=== PATIENT | female | born 1955 | race Caucasian/White ===

== ENCOUNTER 2019-07-25 08:06 | Outpatient (RCR) | payer OTHER, SELFPAY ==
[2019-07-25] VITALS (8 sets, daily range): BP systolic 98–130; BP diastolic 65–78; PULSE 70–100; RESP 16–18; TEMP 36.1–37.1; O2SAT 98–100
[2019-07-25 09:10] LABS: Hematocrit 29.4 % (37.0-47.0); Hemoglobin 9.5 g/dL (12.0-15.0)
[2019-07-25] MEDS: ACETAMINOPHEN 325 MG TABLET 650 MG PO (09:59)
[2019-07-25] MEDS: FUROSEMIDE INJ 40 MG/4 ML VIAL 20 MG IV PUSH (14:32)
[2019-07-25] MEDS: HEPARIN SOD FLUSH 500 UNITS/5 ML SYRINGE (17:45)
== END 2019-10-23 23:59 | disposition home or self-care (01) ==
LOC: ANHCPCTRAN 08:06
PROVIDERS: PCP Family Medicine; Visit Provider Internal Medicine Hematology & Oncology
DX: C34.90 Malignant neoplasm of unspecified part of unspecified bronchus or lung (principal); D64.9 Anemia, unspecified
CPT/HCPCS: 36415; 36430; 85014; 85018; 86850; 86900; 86901; 86923; 96374; A9270; J1940; P9016

== ENCOUNTER 2019-08-01 11:08 | Inpatient (IN) | payer OTHER, SELFPAY ==
--- NOTE | ~2019-08-01 | CT_ITS ---
EXAMINATION: CT abdomen pelvis w con DATE: 08/01/2019 13:54 INDICATION: Low abdominal pain. TECHNIQUE: Computed tomography (CT) of the abdomen and pelvis was performed with 100 mL Omnipaque 350 intravenous contrast. Automated exposure control and iterative reconstruction technique were employe d. The dose-length product was 171.61 mGy-cm. COMPARISON: CT abdomen and pelvis 05/24/2019 FINDINGS: The visualized portions of the lung bases demonstrate emphysema. There is an 8 mm nodule in right lower lobe, decreased from 13 mm. No pleural effusion. The heart size is normal. No pericardia l effusion. There is a small sliding hiatal hernia. The liver, gallbladder, spleen, and pancreas are normal. There are necrotic masses in the adrenal glands measuring up to 2.7 cm on the right, stable f rom 05/24/2019. Right kidney is normal. There is a 10 mm cyst in left kidney. There are scattered dive rticula in the colon. Sigmoid colon is dilated to 5.3 cm and filled with stool. There is wall thicken ing of sigmoid colon. There is wall thickening of adjacent ileum. There is fat stranding in left lowe r quadrant. There is trace ascites in left paracolic gutter. The appendix is normal. There are small foci of free intraperitoneal gas in the left upper quadrant. There are no pathologically enlarged lym ph nodes. There is mild lumbar spondylosis. IMPRESSION: 1. Small foci of free intraperitoneal gas in the left upper quadrant, consistent with perforated visc us. I called this result to Dr. Askew on 08/01/19 at 14:06. 2. Wall thickening of sigmoid colon and adjacent ileum, consistent with inflammation. Sigmoid colon i s distended and stool-filled. 3. Improved lung nodule and stable adrenal masses, consistent with primary bronchogenic carcinoma and metastatic disease. Reviewed, dictated and finalized at location [facility] IMPRESSION: 1. Small foci of free intraperitoneal gas in the left upper quadrant, consisten t with perforated viscus. I called this result to Dr. Askew on 08/01/19 at 14:06. 2. Wall thickening of sigmoid colon and adjacent ileum, consistent with inflamm ation. Sigmoid colon is distended and stool-filled. 3. Improved lung nodule and stable adrenal masses, consistent with primary bron chogenic carcinoma and metastatic disease.
[2019-08-01 11:37] VITALS: BP 110/63; PULSE 80; RESP 17; TEMP 37.4; O2SAT 97
[2019-08-01 11:53] LABS: Basophils Percent Auto 0.5 % (0.2-1.2); Hematocrit 42.3 % (37.0-47.0); Hemoglobin 14.4 g/dL (12.0-15.0); Immature Granulocyte Absolute 0.08 K/mm3 (0.00-0.031); Immature Granulocyte Percent A 1.4 % (0-0.5); Lymphocytes Absolute Auto 0.63 K/mm3 (0.9-3.2); Mean Corpuscular Hemoglobin 33.6 pg (26-34); Mean Corpuscular Volume 98.6 fl (80-100); Mean Platelet Volume 10.3 fl (7.4-10.4); Monocytes Absolute Auto 0.2 K/mm3 (0.1-0.6); Monocytes Percent Auto 4.2 % (2.6-8.5); Neutrophils Absolute Auto 4.8 K/mm3 (1.3-6.7); Neutrophils Percent Auto 82.9 % (45.5-73.1); Platelet Count Result 208 k/mm3 (150-375); Red Blood Count 4.29 M/mm3 (4.2-5.4); Red Cell Distribution Width 18.2 % (11.5-14.5); White Blood Count 5.7 K/mm3 (4.5-10.0)
[2019-08-01 12:04] LABS: Alanine Aminotransferase 18 U/L (4-35); Albumin Level 4.4 g/dL (3.5-5.1); Alkaline Phosphatase 99 U/L (38-126); Aspartate Amino Transferase 17 U/L (14-36); Bilirubin,Total 0.6 mg/dL (0.2-1.3); Blood Urea Nitrogen 33 mg/dL (7-17); Calcium 9.7 mg/dL (8.4-10.2); Carbon Dioxide 27 mmol/L (22-30); Chloride 94 mmol/L (98-107); Estimated Glomerular Filt Rate > 60; Glucose 140 mg/dL (65-105); Potassium 3.8 mmol/L (3.4-5.0); Sodium 133 mmol/L (137-145)
[2019-08-01 12:06] LABS: Lipase < 10 U/L (23-300)
[2019-08-01 12:50] VITALS: BP 121/95; PULSE 81; RESP 18; TEMP 36.5; O2SAT 96
--- NOTE | 2019-08-01 13:02 | ED.ABDPAIN ---
HPI - Abdominal Pain General Chief Complaint: Abdominal Pain Stated Complaint: abd pain Time Seen by Provider: 08/01/19 13:01 Source: patient and RN notes reviewed Mode of arrival: ambulatory Limitations: no limitations History of Present Illness HPI narrative: A 64 y/o female presents to the ED with severe, constant, 10/10, lower ABD pain for the past 3 days. She states that her last BM was 5 days ago and that she has been having severe lower ABD pain for the past 3 days. She reports associated nausea. She notes that she contacted her Oncologist, Dr. Stoddard, who told her to come here to be evaluated. She denies anything alleviating her symptoms. She also denies any fevers, chills, CP, SOB, cough, vomiting, or diarrhea. MD elicited complaint: abdominal pain Pertinent past history: diverticulitis Onset (ago): day(s) (3) Pain Consistency: constant Location: other (lower) Severity: severe Pain scale (0-10): 10 Associated symptoms: nausea Related Data Home Medications Medication Instructions Recorded Confirmed albuterol sulfate [ProAir HFA] 1 - 2 inh INHALATION Q4H PRN 07/05/19 07/27/19 aspirin [Aspirin Childrens] 81 mg PO DAILY 07/05/19 07/27/19 atorvastatin 40 mg PO DAILY 07/05/19 07/27/19 guaifenesin 600 mg PO BID 07/05/19 07/27/19 polyethylene glycol 3350 17 g PO DAILY PRN 07/05/19 07/27/19 cyanocobalamin (vitamin B-12) 1,000 mcg PO DAILY 07/26/19 07/27/19 [Vitamin B-12] dexamethasone 4 mg PO TID 07/26/19 07/27/19 ferrous sulfate [iron] 325 mg PO BID 07/26/19 07/27/19 folic acid 1 mg PO DAILY 07/26/19 07/27/19 levetiracetam [Keppra] 500 mg PO BID 07/26/19 07/27/19 zolpidem 5 mg PO HS PRN 07/26/19 07/27/19 Allergies Allergy/AdvReac Type Severity Reaction Status Date / Time No Known Allergies Allergy Verified 06/27/19 14:26 Review of Systems Review of Systems: All systems reviewed & are unremarkable except as noted in HPI and below Constitutional: Constitutional: Denies chills and Denies fever(s) Cardiovascular: Cardiovascular: Denies chest pain Respiratory: Respiratory: Denies cough and Denies dyspnea Gastrointestinal: Gastrointestinal: Reports abdominal pain (lower), Denies diarrhea, Reports nausea and Denies vomiting PMF Past Medical History Medical History (Updated 08/01/19 @ 17:39 by Joss Askew MD) Anxiety (Acute) Arthritis (Acute) Bipolar 1 disorder, depressed (Acute) COPD (chronic obstructive pulmonary disease) (Acute) Depression (Acute) Diverticulitis (Acute) Non-small cell lung cancer (Chronic) Right orbit fracture (Acute) Right wrist fracture (Acute Unknown) TIA (transient ischemic attack) (Acute) UTI (urinary tract infection) (Acute Unknown) Vulvar cancer (Acute) Surgical History Surgical History H/O right wrist surgery (Acute) History of hysterectomy (Acute) Status post right foot surgery (Acute) Family History Family History Father Lung cancer Mother Leukemia Social History Social History Social History: The patient has smoked between 2-2.5 packs of cigarettes per day since she was 14 years old. She currently reports smoking about 13 cigarettes per day. She evidently lives with her son who is a heroin user. The patient smokes marijuana daily. Does not have a healthcare power of commercial attorney. She reportedly does not have anyone to delegate a decision maker, because she does not trust her son to make decisions due to his drug abuse and she has no other family to put in this position. She wishes to be a full code at this time and will discuss her wishes with her son. Smoking packs per day: 0.5 Smoking cigarettes per day: 10.0 Years smoked: 40 Smoking pack-years: 20.00 Smoking status: Current every day smoker Tobacco type: cigarettes Second hand tobacco smoke exposure: Yes Amandeep
--- NOTE | 2019-08-01 13:46 | PC.NURSE ---
Patient to CT at this time
[2019-08-01] MEDS: METOCLOPRAMIDE HCL INJ 10 MG/2 ML VIAL IV PUSH (14:38)
[2019-08-01] MEDS: SODIUM CHLORIDE 0.9% IV 1,000 ML 999 ML IV CONT (14:39)
[2019-08-01 14:40] LABS: Add Urine Microscopic? NO; Appearance Urine Clear (Clear); Bilirubin Urine Negative (Negative); Blood Urine Negative (Negative); Color Urine Yellow (Yellow); Glucose Urine UA Negative (Negative); Ketones Urine Negative (Negative); Leukocyte Esterase Ur Negative LEU/UL (Negative); Nitrate Urine Negative (Negative); Protein Urine Negative (Negative); Urobilinogen Urine Negative mg/dL (<2.0)
[2019-08-01 14:41] VITALS: BP 106/79; PULSE 84; RESP 19; O2SAT 94
--- NOTE | 2019-08-01 14:41 | PC.NURSE ---
This RN asked EDP about obtaining blood cultures prior to antibiotic administration, EDP states that there is no need for blood cultures. Primary RN notified.
[2019-08-01 14:43] LABS: Specific Grav Ur 1.058 (1.001-1.035)
[2019-08-01 15:32] VITALS: BP 120/63; PULSE 78; RESP 20; O2SAT 96
--- NOTE | 2019-08-01 16:06 | PM.IMHP ---
H&P: HPI History of Present Illness Chief complaint: abd pain Narrative: Serena Jacobs is a 64 year old female with known metastatic non-small cell lung cancer being treated with chemotherapy and a history of COPD and history of diverticulitis. The patient was at an initial radiation oncology visit today to be set up for brain radiation and apparently was having severe abdominal pain and complaining of constipation, therefore she was directed to the emergency department to be evaluated. The patient reports that her abdominal pain started last , 4 days ago. She reports it is lower abdominal pain and initially she felt it was due to constipation. The following day, on Thursday, she began taking MiraLax and Senokot. She also reportedly had given herself an enema, with a bowel movement following this. She states the abdominal pain became severe and was cramping in nature. She attributed it to the laxatives, and reportedly stop taking laxatives. She states her pain started to improve up until yesterday. She began to have the lower abdominal pain worsening again suddenly. She attempted another enema, but this time with no results. She then presented to her appointment today to discuss radiation for her brain mass, and was directed to the ED due to her severe abdominal pain. CT scan of abdomen pelvis showed small foci of free air in the left upper quadrant, wall thickening of the sigmoid colon and adjacent ileum with the sigmoid colon filled with stool and measuring up to 5.3 cm. Also noted is an improved lung nodule and stable adrenal masses, consistent with primary bronchogenic carcinoma and metastatic disease. initial labs reveal a white blood cell count of 5,700, hemoglobin 14, hematocrit 42, sodium 133, potassium 3.8, BUN 33, creatinine 0.6, and lactic acid 2.0. Our service was contacted for the concerning findings of free air in the abdomen that raises concern for perforated viscus. Dr. Pruitt and I then evaluated the patient in emergency department and she will be admitted to our service. We will be consulting the hospitalist for medical management while inpatient. The patient reports that even following pain medication administered in the ED, she reports her abdominal pain at an 8/10. She reports having nausea for the past 2-3 days but no vomiting. Her last bowel movement was with the enema 3 days ago. She reportedly has been undergoing chemotherapy for the metastatic lung cancer by Dr. Stoddard and has had 4 treatments, with the last being on last Thursday, 6 days ago. Has not had any radiation treatment at this time. No other complaints at this time. Review of Systems Review of Systems: All systems reviewed & are unremarkable except as noted in HPI and below Constitutional: Constitutional: Reports as per HPI, Denies chills, Denies excessive sweating, Denies fatigue, Denies fever(s), Denies headache(s) and Denies weakness Eyes: Eyes: Denies change in vision and Denies eye pain ENT: Denies dysphagia, Denies dizziness, Denies dry mouth, Denies headache(s), Denies hearing loss and Denies mouth pain Cardiovascular: Cardiovascular: Denies chest pain, Denies pedal edema, Denies radiating jaw, neck or arm pain, Denies dyspnea and Denies dyspnea on exertion Respiratory: Respiratory: Denies cough, Denies dyspnea and Denies wheezing Comments: known metastatic lung cancer, current daily smoker Gastrointestinal: Gastrointestinal: Reports as per HPI, Reports abdominal pain (lower), Reports constipation, Denies dysphagia, Reports nausea (2-3 days) and Denies vomiting Musculoskeletal: Musculoskeletal: Denies abnormal gait, Denies deformity, Denies joint swelling, Denies numbness and Denies tingling Integumentary/Breasts: Skin/Breast: Denies new lesions, Denies rash, Denies wounds and Denies jaundice Neurologic: Denies abnormal gait, Denies dizziness, Denies headache(s), Reports numbness ( Numbness around her mouth) and Denies tingling Comments: recent
--- NOTE | 2019-08-01 16:11 | PM.PNGS ---
Progress Note: A&P Assessment and Plan (1) Perforation of sigmoid colon: Code(s): K63.1 - Perforation of intestine (nontraumatic) Status: Acute Assessment and Plan: Most effective treatment for patient would be exploratory laparotomy with sigmoidectomy to include the fecal impaction. This would necessitate end descending colostomy. This would be the most effective source control and patient understands this. She is however receiving palliative treatment for metastatic lung cancer. She is not sure if she wants to continue any treatments but at this time does not feel that surgery is something she wants to undergo. She was considering hospice but we also discussed nonsurgical medical management to include gentle laxatives IV antibiotics analgesics and IV fluids. This, she felt, would be the best option. She is admitted now for the above treatment. Will consult hospitalist for medical management. Was last chemotherapy treatment just Thursday, nonsurgical options do not seem likely to be successful. (2) Fecal impaction of colon: Code(s): K56.41 - Fecal impaction Status: Acute Assessment and Plan: Clearly has fecal impaction. There is inflammation and evidence of perforation in the sigmoid colon which could be from diverticulitis but more likely is stercoral colitis with perforation. (3) Non-small cell lung cancer: Code(s): C34.90 - Malignant neoplasm of unspecified part of unspecified bronchus or lung Status: Chronic (4) Brain metastases: Code(s): C79.31 - Secondary malignant neoplasm of brain Status: Acute (5) COPD (chronic obstructive pulmonary disease): Code(s): J44.9 - Chronic obstructive pulmonary disease, unspecified Status: Acute Subjective Subjective Date/Time Seen: 08/01/19 16:11 Patient is a 64-year-old woman who has been treated with chemotherapy for right lower lobe bronchogenic lung cancer. She reports she has had 3 chemotherapy treatments the last of which was Thursday. Jazmine was to go to radiation therapy today for evaluation and initiation of radiation therapy. This was for brain metastases. She started having abdominal pain last , 4 days ago. She woke up at 3:00 a.m. this morning however, and the abdominal pain was extremely severe. She has had constipation and was told to take MiraLax for this. She has tried other laxatives as well but without resolution. She was evaluated in the ER and noted to be afebrile with a normal white blood cell count. However her abdomen is diffusely tender with guarding. On CT scan, she has sigmoid colon stercoral colitis with several punctate areas of free intra-abdominal air. One pocket is in the left upper quadrant but there are also some other small pockets around the sigmoid colon. There is some inflammatory changes of adjacent small bowel in the pelvis as well. There is no evidence of small-bowel obstruction. She does have extensive constipation throughout the colon but most particularly in the sigmoid colon with a large fecalith there. The rectum is collapsed with no stool there. After after discussing surgical treatment which would include sigmoidectomy and descending colostomy, the patient was unsure whether she wanted to stop all cancer treatments and go on hospice. She really has no support at home to take care of a colostomy. She tells me her son is a heroin addict. She lives with him. After discussion, she really does not feel surgery is an option for her but would be willing to come in for non surgical treatment hoping that that would suffice. If it does not, she will then re-entered discussion regarding surgery and colostomy versus comfort care or hospice. She is admitted now for gentle laxatives orally, IV antibiotics, and analgesics. Review of Systems Review of Systems: All systems reviewed & are unremarkable except as noted in HPI and below Constitutional: Constitutional: Denies headache(s) E
[2019-08-01 16:32] VITALS: BP 106/78; PULSE 89; RESP 18; TEMP 36.8; O2SAT 94
[2019-08-01] MEDS: ENOXAPARIN 40 MG/0.4 ML SYRINGE SUB-Q (18:05)
[2019-08-01] MEDS: IBUPROFEN IV 800 MG/200 ML 800 MG/200 ML BAG 400 MG IVPB (19:35)
[2019-08-01] MEDS: MINERAL OIL 30 ML UDC 15 ML PO (19:38)
--- NOTE | 2019-08-01 19:47 | ADMGEN ---
This patient, Serena Jacobs, was admitted to Medical Room 245-. Patient/family oriented to hospital policies and general routines including ID bracelet, bed and alarms, visiting hours, pain management, procedures, bathroom and other care routines, personal items, smoking policy, room service/diet, and visiting hours. Valuables list has been completed. Information on how to activate the Rapid Response Team has been discussed. Patient/Family are encouraged to report perceived risks to care and to ask questions if they do not understand what they are told or what they should do.
[2019-08-01 22:00] VITALS: BP 93/53; PULSE 93; RESP 16; TEMP 37.6; O2SAT 92
[2019-08-01 22:13] VITALS: BMI 17.5
[2019-08-01] MEDS: DEXAMETHASONE 4 MG TABLET PO (22:15)
[2019-08-01] MEDS: levETIRAcetam 500 MG TABLET PO (22:15)
[2019-08-01] MEDS: FAMOTIDINE 20 MG/2 ML VIAL IV PUSH (22:15)
[2019-08-01] MEDS: PSYLLIUM POWDER PACKET 1 PACKET PO (22:15)
[2019-08-02] VITALS (21 sets, daily range): BP systolic 90–139; BP diastolic 54–86; PULSE 16–100; RESP 14–95; TEMP 35.8–37; O2SAT 88–100; BMI 17.5
[2019-08-02] MEDS: IBUPROFEN IV 800 MG/200 ML 800 MG/200 ML BAG 400 MG IVPB ×3 (00:07→19:54)
[2019-08-02] MEDS: ALBUTEROL SULFATE NEB 2.5 MG/0.5 ML INH 5 MG INHALATION ×3 (02:28→20:49)
[2019-08-02] MEDS: IPRATROPIUM BR 0.02% INH SOLN 0.5 MG/2.5 ML VIAL INHALATION ×3 (02:29→20:49)
[2019-08-02 05:28] LABS: Basophils Absolute Auto 0.1 K/mm3 (0.0-0.1); Basophils Percent Auto 0.9 % (0.2-1.2); Hematocrit 35.3 % (37.0-47.0); Hemoglobin 12.1 g/dL (12.0-15.0); Immature Granulocyte Absolute 0.09 K/mm3 (0.00-0.031); Immature Granulocyte Percent A 1.3 % (0-0.5); Lymphocytes Absolute Auto 0.36 K/mm3 (0.9-3.2); Lymphocytes Percent Auto 5.3 % (18.3-44.2); Mean Corpuscular HGB Conc 34.3 g/dl (32-36); Mean Corpuscular Hemoglobin 33.6 pg (26-34); Mean Corpuscular Volume 98.1 fl (80-100); Mean Platelet Volume 10.5 fl (7.4-10.4); Monocytes Absolute Auto 0.3 K/mm3 (0.1-0.6); Neutrophils Percent Auto 88.5 % (45.5-73.1); Platelet Count Result 122 k/mm3 (150-375); Red Cell Distribution Width 18.5 % (11.5-14.5); White Blood Count 6.8 K/mm3 (4.5-10.0)
[2019-08-02 05:39] LABS: Blood Urea Nitrogen 31 mg/dL (7-17); Calcium 8.3 mg/dL (8.4-10.2); Carbon Dioxide 26 mmol/L (22-30); Chloride 96 mmol/L (98-107); Estimated CRCL calculation 34 ml/min; Estimated Glomerular Filt Rate 50; Glucose 123 mg/dL (65-105); Potassium 3.4 mmol/L (3.4-5.0); Sodium 132 mmol/L (137-145)
[2019-08-02 05:50] LABS: Macrocytosis 1+ (NORMAL); Platelet Estimate Decreased (Adequate)
--- NOTE | 2019-08-02 06:00 | PM.IMCN ---
Assessment and Plan Assessment and plan (1) Perforation of sigmoid colon: Code(s): K63.1 - Perforation of intestine (nontraumatic) Status: Acute Assessment and Plan: The patient reported that she was not sure if she wanted to have surgery when she talked to the surgeon yesterday. But she thinks that she would have the best quality of life if she would go through with surgery. The patient states that she is now ready to have surgery. (2) Fecal impaction of colon: Code(s): K56.41 - Fecal impaction Status: Acute Assessment and Plan: Resulting in perforated viscus as discussed above. (3) COPD (chronic obstructive pulmonary disease): Code(s): J44.9 - Chronic obstructive pulmonary disease, unspecified Status: Acute Assessment and Plan: Will place patient on scheduled nebulizer treatments and incentive spirometry. Will continue patient's home guaifenesin. Patient's lung exam seems to be at her baseline. She is not in any respiratory distress. (4) Non-small cell lung cancer: Qualifiers: Laterality: unspecified laterality Qualified Code(s): C34.90 - Malignant neoplasm of unspecified part of unspecified bronchus or lung Code(s): C34.90 - Malignant neoplasm of unspecified part of unspecified bronchus or lung Status: Chronic (5) Brain metastases: Code(s): C79.31 - Secondary malignant neoplasm of brain Status: Acute Assessment and Plan: Continue dexamethasone to reduce vasogenic edema. Patient is NPO this will need to be switched over to IV formulation (6) Partial seizure: Code(s): R56.9 - Unspecified convulsions Status: Acute Assessment and Plan: Will continue patient's home Keppra. If she has made NPO she will need equal dosing in IV formulation. HPI Data of Consult Consult date: 08/02/19 Requesting Physician: Thong Pruitt MD Primary Care Provider: Karla Tierney, Consult Narrative Narrative: Serena Jacobs is a 64 year old female well known to me from prior hospitalization with a past medical history of emphysema/COPD, non-small cell carcinoma with relatively new diagnosis of metastatic disease to brain 07/19/2019 who presented back to the ER with severe abdominal pain. The hospitalist service has been consulted for medical management. The patient had been at the radiation oncologist office to set up the schedule for her radiation therapy for her brain metastases and while at the office she complained of abdominal pain. The patient reported the pain was so bad she could not stand up straight. She also mentioned having constipation to the staff. They recommended that she go to the ER. The patient reported the abdominal pain started on the and she thought it was due to constipation. On the she began taking MiraLax in addition to Senokot. When she still do not have a bowel movement in her pain was worsening she gave herself an enema. She did have a bowel movement that consisted of a large ball of hard stool. However after she used the enema her abdominal pain became more severe and cramping in nature. She thought it was due to taking laxative so she stopped taking the laxatives. She noted that her pain improved until when she is having worsening abdominal pain again. She reported the pain was moderate to severe in intensity and cramping in nature. She attempted another enema but had no results. She had a CT in the ER which demonstrated foci free air in the left upper quadrant walk thickening of sigmoid colon adjacent to the ileum with the sigmoid colon filled with stool measuring up to 5.3 cm. The patient's pain was 10/10 in intensity. After she received pain medication in the ER her pain was 8/10 in intensity. The patient had been having nausea for the past 2-3 days but had not been having any vomiting. She reports that her chemotherapy frequently causes her constipation. Her last chemother
[2019-08-02] MEDS: MINERAL OIL 30 ML UDC 15 ML PO (09:15)
[2019-08-02] MEDS: FAMOTIDINE 20 MG/2 ML VIAL IV PUSH ×2 (09:16→22:48)
[2019-08-02] MEDS: DEXAMETHASONE 4 MG TABLET PO ×2 (09:17→12:55)
[2019-08-02] MEDS: levETIRAcetam 500 MG TABLET PO (09:17)
[2019-08-02] MEDS: ENOXAPARIN 40 MG/0.4 ML SYRINGE SUB-Q (09:18)
--- NOTE | 2019-08-02 10:03 | PM.PNGS ---
Progress Note: A&P Assessment and Plan (1) Fecal impaction of colon: Code(s): K56.41 - Fecal impaction Status: Acute Assessment and Plan: This area of sigmoid colon Bill be resected with the surgery. End descending colostomy will be created. I spoke to the enterostomal therapy nurses and they will marked the patient preoperatively for descending colostomy. (2) Perforation of sigmoid colon: Code(s): K63.1 - Perforation of intestine (nontraumatic) Status: Acute Assessment and Plan: Discussed again with the patient. Although she is symptomatic Lisa better this morning, her creatinine as almost doubled. With her history of finishing chemotherapy just 1 week ago, it is quite unlikely she would survive with nonsurgical treatment. She understands that she may not survive or may have complications with surgery but this is certainly her best chance to survive this perforated colon with likely some fecal peritonitis. I discussed the procedure with her. She will be marked preoperatively for a stoma site. The procedure the risks the benefits and the recovery were discussed. The fact that the colostomy may be permanent was discussed. All questions were answered. She agrees to go ahead. (3) Non-small cell lung cancer: Qualifiers: Laterality: unspecified laterality Qualified Code(s): C34.90 - Malignant neoplasm of unspecified part of unspecified bronchus or lung Code(s): C34.90 - Malignant neoplasm of unspecified part of unspecified bronchus or lung Status: Chronic Assessment and Plan: Increases risk of the surgical procedure. (4) Brain metastases: Code(s): C79.31 - Secondary malignant neoplasm of brain Status: Acute Assessment and Plan: Increases risk of the surgical procedure. (5) COPD (chronic obstructive pulmonary disease): Code(s): J44.9 - Chronic obstructive pulmonary disease, unspecified Status: Acute Assessment and Plan: Increases risk of the surgical procedure. Subjective Subjective Date/Time Seen: 08/02/19 10:03 Patient reports: feels better, still having pain, no flatus and no bowel movement Interval history: Patient much more comfortable than she was in the emergency room but still having quite a bit of abdominal pain. She has reconsidered surgery and now wishes to proceed. Review of Systems Review of Systems: All systems reviewed & are unremarkable except as noted in HPI and below Constitutional: Constitutional: Denies headache(s) ENT: Denies headache(s) Cardiovascular: Cardiovascular: Denies chest pain and Denies dyspnea Respiratory: Respiratory: Denies cough and Denies dyspnea Gastrointestinal: Gastrointestinal: Reports as per HPI Neurologic: Denies confusion and Denies headache(s) Psychiatric: Psychiatric: Denies confusion Exam Const: General: comfortable and no acute distress; No confused Orientation/consciousness: oriented x3 and No confused Resp: Effort & Inspection: normal respiratory effort Auscultation: clear to auscultation bilaterally Cardio: Rate: regular rate Rhythm: regular rhythm GI: Inspection: normal to inspection Palpation (GI): Yes firm, Yes tender, Yes guarding, No hepatomegaly, No splenomegaly, No hernia, No mass and Yes rebound tenderness Auscultation: absent bowel sounds Neuro: General: oriented x3, no focal motor deficits and No confused Extrem: General: no calf tenderness and no edema Psych: Affect: normal affect Insight: insight good Judgement: judgment good Objective Data Vital Signs Vital Signs: Vital Signs - 24 hr 08/01/19 11:37 08/01/19 12:50 08/01/19 14:41 Temperature 37.4 C 36.5 C Pulse Rate 80 81 84 Respiratory Rate 17 18 19 Blood Pressure 110/63 121/95 H 106/79 Pulse Oximetry 97 96 94 L 08/01/19 15:32 08/01/19 16:32 08/01/19 22:00 Temperature 36.8 C 37.6 C Pulse Rate 78 89 93 Respiratory Rate 20 18 16 Blood Pressure 120/63 106/78 93/53 L Pu
--- NOTE | 2019-08-02 12:14 | PCWOUND ---
WOCN NOTE received orders to rosa both left and right abdomen for suggested ostomy placement site. had pateint sit up and lay flat to determine best sites. placed black marker X on sites and covered with transparent dressing. did basic education of ostomy care.
--- NOTE | 2019-08-02 13:00 | PC.NURSE ---
Pt taken to OR per bed.
[2019-08-02] MEDS: LACTATED RINGERS 1,000 ML 30 ML IV CONT ×2 (13:05→17:00)
--- NOTE | 2019-08-02 13:15 | PM.IMCN ---
Assessment and Plan Assessment and plan (1) Perforation of sigmoid colon: Code(s): K63.1 - Perforation of intestine (nontraumatic) Status: Acute Assessment and Plan: Patient understands risks wants to go ahead with bowel resection with ostomy bag placement, discussing with surgery team (2) Fecal impaction of colon: Code(s): K56.41 - Fecal impaction Status: Acute Assessment and Plan: Resulting in perforated sigmoid colon (3) COPD (chronic obstructive pulmonary disease): Code(s): J44.9 - Chronic obstructive pulmonary disease, unspecified Status: Acute Assessment and Plan: Will place patient on scheduled nebulizer treatments and incentive spirometry. Pt lungs are clear (4) Non-small cell lung cancer: Qualifiers: Laterality: unspecified laterality Qualified Code(s): C34.90 - Malignant neoplasm of unspecified part of unspecified bronchus or lung Code(s): C34.90 - Malignant neoplasm of unspecified part of unspecified bronchus or lung Status: Chronic Assessment and Plan: Continue dexamethasone. Pt is high risk for surgery with lung cancer and brains mets (5) Brain metastases: Code(s): C79.31 - Secondary malignant neoplasm of brain Status: Acute Assessment and Plan: Continued dexamethasone. Pt is high risk for surgery with lung cancer and brains mets (6) Partial seizure: Code(s): R56.9 - Unspecified convulsions Status: Acute Assessment and Plan: Continuedpatient's home Keppra HPI Data of Consult Consult date: 08/02/19 Requesting Physician: Thong Pruitt MD Primary Care Provider: Karla Tierney, Consult Narrative Narrative: Mrs Jacobs is a 64 year old female - with a past medical history of emphysema/COPD, non-small cell carcinoma and new diagnosis of metastatic disease to brain 07/19/2019 who presented to ED this time with severe abdominal pain, Pt has been having problems with severe constipation for 6-7 days and fecel impaction resulting in a perforation of her sigmoid colon. Pt seen by surgery options discuused. Pt wants to proceed with surgery is aware she is high risk patient. Pt also sees DR Stoddard. Her last chemotherapy was 6 days ago.- Please note the patient had been admitted to the hospital on July 19 for new diagnosis of brain mets and had seizure activity at that time. The patient is continued her dexamethasone and keppra here and remains seizure free and her breathing is stable. Her main complaints are abdominal pains presently. Review of Systems Review of Systems: All systems reviewed & are unremarkable except as noted in HPI and below PMFSH Past Medical History Medical History (Updated 08/01/19 @ 17:39 by Joss Askew MD) Anxiety (Acute) Arthritis (Acute) Bipolar 1 disorder, depressed (Acute) COPD (chronic obstructive pulmonary disease) (Acute) Depression (Acute) Diverticulitis (Acute) Non-small cell lung cancer (Chronic) Right orbit fracture (Acute) Right wrist fracture (Acute Unknown) TIA (transient ischemic attack) (Acute) UTI (urinary tract infection) (Acute Unknown) Vulvar cancer (Acute) Surgical History Surgical History H/O right wrist surgery (Acute) History of hysterectomy (Acute) Status post right foot surgery (Acute) Family History Family History Father Lung cancer Mother Leukemia Social History Social History Social History: The patient has smoked between 2-2.5 packs of cigarettes per day since she was 14 years old. She currently reports smoking about 13 cigarettes per day. She evidently lives with her son who is a heroin user. The patient smokes marijuana daily. 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 She reportedly does not have an
--- NOTE | 2019-08-02 13:20 | WPDANESEPPF ---
Anes - Initial Pre Proc Eval Procedure: Operation Date: 08/02/19 14:00 Proposed Procedures p SIGMOID COLECTOMY WITH OSTOMY,SUAREZ PORECEDURE - Thong Pruitt MD Date/Time: 08/02/19 13:20 Surgeon: Thong Pruitt MD Pre Op Diagnosis: bowel perforation Patient Data Age: 64 Gender: F Height: 5 ft 4 in Weight: 46.3 kg Last Vital Signs Temp 35.8 C L 08/02/19 06:00 Pulse 97 08/02/19 08:00 Resp 16 08/02/19 08:00 BP 92/54 L 08/02/19 06:00 Pulse Ox 94 L 08/02/19 08:00 Allergies Allergy/AdvReac Type Severity Reaction Status Date / Time No Known Allergies Allergy Verified 08/02/19 11:14 Home Medications Medication Instructions Recorded Confirmed Type albuterol sulfate [ProAir HFA] 1 - 2 inh INHALATION Q4H PRN 07/05/19 08/02/19 History aspirin [Aspirin Childrens] 81 mg PO DAILY 07/05/19 08/02/19 History atorvastatin 40 mg PO DAILY 07/05/19 08/02/19 History guaifenesin 600 mg PO BID 07/05/19 08/02/19 History polyethylene glycol 3350 17 g PO DAILY PRN 07/05/19 08/02/19 History cyanocobalamin (vitamin B-12) 1,000 mcg PO DAILY 07/26/19 08/02/19 History [Vitamin B-12] dexamethasone 4 mg PO TID 07/26/19 08/02/19 History ferrous sulfate [iron] 325 mg PO BID 07/26/19 08/02/19 History folic acid 1 mg PO DAILY 07/26/19 08/02/19 History zolpidem 5 mg PO HS PRN 07/26/19 08/02/19 History levetiracetam [Keppra] 500 mg PO BID 08/01/19 08/02/19 History Laboratory Tests 08/01/19 08/01/19 08/02/19 14:16 15:21 05:07 WBC 6.8 K/mm3 K/mm3 (4.5-10.0) RBC 3.60 M/mm3 L M/mm3 (4.2-5.4) Hgb 12.1 g/dL g/dL (12.0-15.0) Hct 35.3 % L % (37.0-47.0) MCV 98.1 fl fl (80-100) MCH 33.6 pg pg (26-34) MCHC 34.3 g/dl g/dl (32-36) RDW 18.5 % H % (11.5-14.5) Plt Count 122 k/mm3 L k/mm3 (150-375) MPV 10.5 fl H fl (7.4-10.4) Immature Gran % (Auto) 1.3 % H % (0-0.5) Neut % (Auto) 88.5 % H % (45.5-73.1) Lymph % (Auto) 5.3 % L % (18.3-44.2) [place] % (Auto) 4.0 % % (2.6-8.5) Eos % (Auto) 0.0 % % (0-4.4) Baso % (Auto) 0.9 % % (0.2-1.2) Lymph # (Auto) 0.36 K/mm3 L K/mm3 (0.9-3.2) [place] # (Auto) 0.3 K/mm3 K/mm3 (0.1-0.6) Eos # (Auto) 0.0 K/mm3 K/mm3 (0-0.3) Baso # (Auto) 0.1 K/mm3 K/mm3 (0.0-0.1) Abs Immat Gran (auto) 0.09 K/mm3 H K/mm3 (0.00-0.031) Absolute Neuts (auto) 6.0 K/mm3 K/mm3 (1.3-6.7) Absolute Nucleated RBC 0.0 K/mm3 K/mm3 (0.0-0.012) Nucleated RBC % 0.0 % % (0.0-0.2) Platelet Estimate Decreased (Adequate) Macrocytosis 1+ (NORMAL) Sodium Potassium Chloride Carbon Dioxide BUN Creatinine Estim Creat Clear Calc Estimated GFR Glucose Lactic Acid 2.0 mmol/L mmol/L (0.7-2.1) Calcium Urine Color Yellow (Yellow) Urine Appearance Clear (Clear) Urine pH 6.0 (5.0-9.0) Ur Specific [place] 1.058 H (1.001-1.035) Urine Protein Negative mg/dL mg/dL (Negative) Urine Glucose (UA) Negative mg/dL mg/dL (Negative) Urine Ketones Negative mg/dL mg/dL (Negative) Ur Blood (Man) Negative (Negative) Urine Nitrate Negative (Negative) Urine Bilirubin Negative (Negative) Urine Urobilinogen Negative mg/dL mg/dL (<2.0) Leukocyte Esterase Rfl Negative FANNY/UL FANNY/UL (Negative) Blood Type Antibody Screen 08/02/19 08/02/19 05:07 11:10 WBC RBC Hgb Hct MCV MCH MCHC RDW Plt Count MPV Immature Gran % (Auto) Neut % (Auto) Lymph % (
[2019-08-02] MEDS: ALVIMOPAN 12 MG CAPSULE PO (13:30)
[2019-08-02] MEDS: HYDROMORPHONE HCL 1 MG/ML INJ 0.5 MG IV PUSH (13:30)
[2019-08-02] MEDS: metroNIDAZOLE 500 MG/ISO 100ML 500 MG/100 ML BAG 100 MG IVPB (14:08)
--- NOTE | 2019-08-02 15:54 | SUR.OPER ---
EBL:20CC
--- NOTE | 2019-08-02 16:19 | PC.NURSE ---
Pt remains in the OR.
--- NOTE | 2019-08-02 16:26 | PM.PROC ---
Date of procedure: 08/02/19 Pre-op diagnosis: Perforation sigmoid colon, fecal impaction Perforation sigmoid colon, fecal impaction Post-op diagnosis: same Procedure performed: Sigmoid colectomy with creation of end descending colostomy, Pancho procedure Description of procedure: The patient was taken to surgery and induced into general anesthesia. The abdomen was prepped and draped. A Morgan catheter had been placed. A nasogastric tube had been placed. The abdomen was opened in the midline. Dissection was carried down through the midline and the peritoneal cavity was entered. There was obviously some purulent ascites in the abdomen. There were also adhesions of omentum and some small bowel to the perforated fecal impaction in the sigmoid colon. The ascites was suctioned away. The adhesions were taken down. I eviscerated the transverse colon and all of the small intestine so that the area of the sigmoid perforation could be isolated. I then irrigated the pelvis and suctioned this irrigant out. I mobilized the sigmoid colon by dividing its lateral peritoneal attachments. I then isolated a bit of distal sigmoid colon using the cautery. I divided this distal sigmoid with the TLC 75 stapler. From there I isolated a bit of distal descending colon just proximal to the retained fecal impaction in the sigmoid. I divided this portion of the colon with a TLC 75 stapler as well. This dissection was done with the cautery which was used for hemostasis. I then divided the mesentery to the area of sigmoid that held the fecal impaction. This was also done with the cautery and cautery was used for hemostasis. This allowed me to remove the source of sepsis. This was passed off to pathology labeled perforated sigmoid colon with fecal impaction. At this point I copiously irrigated the entire abdomen with warm saline. Some peroxide mixed with warm saline was then used to irrigate the abdomen as well. I removed exudate and fibrinous debris from the serosal surface of the omentum and small intestine as much as I could. I then repeated the irrigation thoroughly. The NG tube was checked and was appropriately in the stomach. I evacuated much of the small bowel fluid back into the stomach and evacuated that through the NG tube. I checked the pelvis and other areas of dissection for hemostasis which was quite good. The patient had been marked preoperatively for a left-sided colostomy. I excised a [place] in the area that had been marked. This was a [place] of skin with the corresponding subcutaneous down to the anterior rectus fascia. I then made a cruciate incision in the fascia and pulled the rectus muscle fibers apart so that the posterior rectus fascia was exposed. This was also divided with a cruciate incision. I dilated the opening with 2 fingers. The end of the descending colon was pulled up through the aperture and left on the abdominal wall in this position. I made sure that it was oriented appropriately so it was not twisted. I should point out that the entire colon was packed with stool as well. This included the entire cecum, right colon, transverse colon, and descending colon. I then went back to the peritoneal cavity. I placed the abdominal contents back in their anatomic position. I placed a 19 Portuguese Ming drain in the pelvis and brought it out through the right lower quadrant. It was sutured to the skin with 2 0 silk. I then closed the midline fascia with bidirectional running #1 PDS suture. The subcu was closed with interrupted 3 0 Vicryl suture. The skin was loosely approximated with interrupted 4 0 Vicryl subcuticular suture. I quarantined the skin incision and the drain exit site. I then divided the staple line and some of the end descending colon in preparation to mature the colostomy. The bowel looked quite healthy. I matured the colostomy with interrupted 4 0 chromic suture. Four sutures were placed in each quadrant. Then 4 additional sutures we
--- NOTE | 2019-08-02 16:35 | SUR.OPER ---
ZOSYN 3.375MG GIVEN IN OR AT 1558 BY DELONTE LAL CRNA. IV BAG OBTAINED FROM SECOND FLOOR, IT WAS SCHEDULED DOSE
--- NOTE | 2019-08-02 17:36 | PCRCNOTE ---
PATIENT IN SURGERY TREATMENT NOT GIVEN
--- NOTE | 2019-08-02 17:38 | SUR.PHASEI ---
1608; PT ARRIVED IN TO PACU PER BED WITH MASK O2, NG PLACED TO LOW CONTINUOUS SUCTION PER DR HE ORDER. COLOSTOMY BAG EMPTY. RT TO RT ABDOMEN SM AMT SEROSANG DRAINAGE. MIDLINE DRESSING TO ABD D/I. RESP EVEN UNLABORED. P,W,D. 1630; PT RESTING QUIETLY. PT WILL MOAN SOFTLY IN INTERVALS AND C/O PAIN. FENTANYL GIVEN PRN. 1720; REPORT GIVEN TO FLOOR RN. PT AROUSES EASILY TO VERBAL STIMULI. RESTING QUIETLY. ASKING ABOUT NG. INFORMED OF TUBE. 1725; TRANSFERRED PER BED TO ROOM 251. PT STATES NO FAMILY WITH HER TODAY AT HOSPITAL. MEETS DISCHARGE CRITERIA
[2019-08-02] MEDS: DEXAMETHASONE SOD PHOS INJ 4 MG/ML VIAL IV PUSH (21:20)
[2019-08-02] MEDS: levETIRAcetam 500MG/NACL 100ML 500 MG/100 ML BAG 400 MG IVPB (21:20)
[2019-08-02] MEDS: HEPARIN SOD FLUSH 500 UNITS/5 ML SYRINGE IV PUSH (21:20)
[2019-08-02] MEDS: LACTATED RINGERS 1,000 ML 125 ML IV CONT (21:21)
[2019-08-03] VITALS (12 sets, daily range): BP systolic 103–116; BP diastolic 52–71; PULSE 78–100; RESP 16–22; TEMP 36.1–36.7; O2SAT 95–97
[2019-08-03] MEDS: IBUPROFEN IV 800 MG/200 ML 800 MG/200 ML BAG 400 MG IVPB ×4 (00:22→17:59)
[2019-08-03] MEDS: IPRATROPIUM BR 0.02% INH SOLN 0.5 MG/2.5 ML VIAL INHALATION ×4 (02:53→20:36)
[2019-08-03] MEDS: ALBUTEROL SULFATE NEB 2.5 MG/0.5 ML INH 5 MG INHALATION ×4 (02:53→20:36)
[2019-08-03 06:24] LABS: Basophils Absolute Auto 0.1 K/mm3 (0.0-0.1); Basophils Percent Auto 0.9 % (0.2-1.2); Hematocrit 28.3 % (37.0-47.0); Hemoglobin 9.8 g/dL (12.0-15.0); Immature Granulocyte Percent A 1.6 % (0-0.5); Lymphocytes Absolute Auto 0.17 K/mm3 (0.9-3.2); Lymphocytes Percent Auto 2.7 % (18.3-44.2); Mean Corpuscular HGB Conc 34.6 g/dl (32-36); Mean Corpuscular Hemoglobin 33.9 pg (26-34); Mean Corpuscular Volume 97.9 fl (80-100); Mean Platelet Volume 11.6 fl (7.4-10.4); Monocytes Absolute Auto 0.3 K/mm3 (0.1-0.6); Monocytes Percent Auto 4.4 % (2.6-8.5); Neutrophils Absolute Auto 5.7 K/mm3 (1.3-6.7); Neutrophils Percent Auto 90.4 % (45.5-73.1); Platelet Count Result 89 k/mm3 (150-375); Red Blood Count 2.89 M/mm3 (4.2-5.4); Red Cell Distribution Width 18.3 % (11.5-14.5); White Blood Count 6.3 K/mm3 (4.5-10.0)
[2019-08-03 06:49] LABS: Blood Urea Nitrogen 25 mg/dL (7-17); Calcium 7.7 mg/dL (8.4-10.2); Carbon Dioxide 23 mmol/L (22-30); Chloride 101 mmol/L (98-107); Estimated CRCL calculation 46 ml/min; Estimated Glomerular Filt Rate > 60; Glucose 134 mg/dL (65-105); Potassium 2.8 mmol/L (3.4-5.0); Sodium 133 mmol/L (137-145)
[2019-08-03] MEDS: levETIRAcetam 500MG/NACL 100ML 500 MG/100 ML BAG 400 MG IVPB ×2 (07:36→21:05)
[2019-08-03] MEDS: DEXAMETHASONE SOD PHOS INJ 4 MG/ML VIAL IV PUSH ×3 (07:41→21:05)
[2019-08-03] MEDS: ENOXAPARIN 40 MG/0.4 ML SYRINGE SUB-Q (07:42)
[2019-08-03] MEDS: FAMOTIDINE 20 MG/2 ML VIAL IV PUSH ×2 (07:42→21:05)
[2019-08-03] MEDS: KCL 40 MEQ/D5/0.9% SOD CHL 1,000 ML 125 ML IV CONT ×2 (08:01→18:01)
[2019-08-03] MEDS: POTASSIUM CHLORIDE 20 MEQ TABLET.ER 40 MEQ PO ×2 (08:01→17:58)
[2019-08-03] MEDS: MORPHINE SULFATE 4 MG/ML INJ IV PUSH (08:07)
--- NOTE | 2019-08-03 11:38 | PM.PNGS ---
Progress Note: A&P Assessment and Plan (1) Perforation of sigmoid colon: Code(s): K63.1 - Perforation of intestine (nontraumatic) Status: Acute Assessment and Plan: Post op day 1 and doing well. Pain is well-controlled. Continue IV antibiotics. Continue NG tube decompression and bowel rest. Continue IV fluids and analgesics. Dr. Pruitt will likely change the initial post-op dressing to evaluate the surgical incision and ostomy in the next 1-2 days. Encouraged the patient to get up to chair today. Will repeat labs again tomorrow. (2) Fecal impaction of colon: Code(s): K56.41 - Fecal impaction Status: Resolved Assessment and Plan: Sigmoid colon impaction removed with the bowel resection during surgery (3) Non-small cell lung cancer: Qualifiers: Laterality: unspecified laterality Qualified Code(s): C34.90 - Malignant neoplasm of unspecified part of unspecified bronchus or lung Code(s): C34.90 - Malignant neoplasm of unspecified part of unspecified bronchus or lung Status: Chronic (4) Brain metastases: Code(s): C79.31 - Secondary malignant neoplasm of brain Status: Acute Assessment and Plan: On IV Keppra while NPO. Appreciate hospitalist help. (5) COPD (chronic obstructive pulmonary disease): Code(s): J44.9 - Chronic obstructive pulmonary disease, unspecified Status: Acute Assessment and Plan: Increases risk of surgery and complications. Currently on breathing treatments and doing well so far. Encouraged IS use. (6) Hypokalemia: Code(s): E87.6 - Hypokalemia Status: Acute Assessment and Plan: Replaced with both oral and IV potassium today. Will repeat labs in the am. Subjective Subjective Date/Time Seen: 08/03/19 11:38 Post Op day: 1 Patient reports: no flatus and no bowel movement Interval history: Patient seen and examined. Reports some abdominal pain but improved with P.r.n. pain medication. Primary complaint is discomfort of the NG tube. No flatus or BM yet. No ostomy output. Patient denies any nausea or significant bloating today. WBC normal today, VS stable. NG output minimal overnight. No acute events overnight. Review of Systems Review of Systems: All systems reviewed & are unremarkable except as noted in HPI and below Exam Const: General: comfortable, no acute distress, alert and awake Orientation/consciousness: oriented x3 Resp: Effort & Inspection: normal respiratory effort and able to speak in complete sentences Auscultation: clear to auscultation bilaterally Cardio: Rate: regular rate Rhythm: regular rhythm Heart sounds: S1 normal and S2 normal GI: Inspection: non-distended and incision ( Dressing is clean, dry, and intact) Palpation (GI): Yes soft and Yes tender other (incisional) Auscultation: absent bowel sounds Other: WES drain to right side of abdomen with serosanguineous drainage. Left-sided colostomy with a smear of stool at the opening of the stoma but no output in the bag, stoma appears pink and moist. Neuro: General: oriented x3 and moves all extremities Cranial nerves: Yes CN's II-XII intact bilaterally Speech: normal speech Extrem: General: no calf tenderness and no edema Psych: Mental Status: mental status grossly normal Attitude: cooperative Thought process: normal thought process Thought content: Yes normal Objective Data Vital Signs Vital Signs: Vital Signs - 24 hr 08/02/19 13:36 08/02/19 16:08 08/02/19 16:20 Temperature 37.0 C 36.9 C Pulse Rate 76 77 72 Respiratory Rate 18 20 16 Blood Pressure 126/77 139/73 131/74 Pulse Oximetry 98 100 100 08/02/19 16:35 08/02/19 16:50 08/02/19 17:05 Temperature Pulse Rate 73 78 80 Respiratory Rate 17 18 20 Blood Pressure 137/85 138/75 132/77 Pulse Oximetry 100 100 96 08/02/19 17:25 08/02/19 17:35 08/02/19 17:50 Temperature 36.4 C 36.6 C Pulse Rate 80 83 83 Respiratory Rate 18 14 14 Blood Press
--- NOTE | 2019-08-03 13:18 | WPDANESPN ---
Anes - Prog Note Post-Op Date/Time: 08/03/19 13:18 Cardiovascular status: normal Respiratory status: normal Airway patency: baseline Mental status: baseline Post-Op hydration status: normal Vital Signs: Last Vital Signs Temp 98.0 F 08/03/19 05:50 Pulse 90 08/03/19 08:47 Resp 18 08/03/19 08:47 BP 107/64 08/03/19 05:50 Pulse Ox 95 08/03/19 08:00 Pain Score (VAS): 10/24 I/O: Intake & Output 08/02/19 08/03/19 08/03/19 23:59 07:59 15:59 Intake Total 650 700 50 Output Total 705 500 Balance -55 200 50 Laboratory Tests 08/03/19 05:42 08/03/19 05:42 08/03/19 08/03/19 05:42 05:42 WBC 6.3 RBC 2.89 L Hgb 9.8 L Hct 28.3 L MCV 97.9 MCH 33.9 MCHC 34.6 RDW 18.3 H Plt Count 89 L MPV 11.6 H Immature Gran % (Auto) 1.6 H Neut % (Auto) 90.4 H Lymph % (Auto) 2.7 L [place] % (Auto) 4.4 Eos % (Auto) 0.0 Baso % (Auto) 0.9 Lymph # (Auto) 0.17 L [place] # (Auto) 0.3 Eos # (Auto) 0.0 Baso # (Auto) 0.1 Abs Immat Gran (auto) 0.10 H Absolute Neuts (auto) 5.7 Absolute Nucleated RBC 0.0 Nucleated RBC % 0.0 Sodium 133 L Potassium 2.8 L* Chloride 101 Carbon Dioxide 23 BUN 25 H Creatinine 0.80 Estim Creat Clear Calc 46 Estimated GFR > 60 Glucose 134 H Calcium 7.7 L Microbiology 08/01/19 20:39 Blood Blood Culture - Preliminary 08/01/19 20:39 Blood Blood Culture - Preliminary Post-procedural complaints: none Patient Feedback: Patient satisfied with anesthetic care.
--- NOTE | 2019-08-03 13:42 | PM.IMCN ---
Assessment and Plan Assessment and plan (1) Perforation of sigmoid colon: Code(s): K63.1 - Perforation of intestine (nontraumatic) Status: Acute Assessment and Plan: Patient POD day 1 bowel resection with ostomy bag placement, surgery team is rounding. Pt has Ng tube in situ (2) Fecal impaction of colon: Code(s): K56.41 - Fecal impaction Status: Resolved Assessment and Plan: Resulting in perforated sigmoid colon pt sp bowel resection (3) COPD (chronic obstructive pulmonary disease): Code(s): J44.9 - Chronic obstructive pulmonary disease, unspecified Status: Acute Assessment and Plan: Continue scheduled nebulizer treatments and incentive spirometry. Pt lungs are clear (4) Non-small cell lung cancer: Qualifiers: Laterality: unspecified laterality Qualified Code(s): C34.90 - Malignant neoplasm of unspecified part of unspecified bronchus or lung Code(s): C34.90 - Malignant neoplasm of unspecified part of unspecified bronchus or lung Status: Chronic Assessment and Plan: Continue dexamethasone. Pt is high risk for surgery with lung cancer and brains mets (5) Brain metastases: Code(s): C79.31 - Secondary malignant neoplasm of brain Status: Acute Assessment and Plan: Continued dexamethasoneIV . Pt is high risk for surgery with lung cancer and brains mets (6) Partial seizure: Code(s): R56.9 - Unspecified convulsions Status: Acute Assessment and Plan: Continued patient's home Keppra IV (7) Hypokalemia: Code(s): E87.6 - Hypokalemia Status: Acute Assessment and Plan: Pt to have K rider, continue to monitor BMP HPI Data of Consult Consult date: 08/03/19 Requesting Physician: Thong Pruitt MD Primary Care Provider: Karla Tierney, Consult Narrative Narrative: Serena Jacobs is a 64 year old female with a past medical history of emphysema/COPD, non-small cell carcinoma and new diagnosis of metastatic disease to brain 07/19/2019 who presented to ED this time with severe abdominal pain, Pt has been having problems with severe constipation for 6-7 days and fecel impaction resulting in a perforation of her sigmoid colon. Pt Sp bowel resection yesterday, stable doing well with NG tube in situ. POD # 1 Some concerns about the stoma. No output yet. Pt also sees DR Stoddard. Her last chemotherapy was 7 days ago.- Please note the patient had been admitted to the hospital on July 19 for new diagnosis of brain mets and had seizure activity at that time. The patient is continued her dexamethasone and keppra here and remains seizure free and her breathing is stable. Pt medications have been changed to IV. Review of Systems Review of Systems: All systems reviewed & are unremarkable except as noted in HPI and below (history and physical) PMFSH Past Medical History Medical History Anxiety (Acute) Arthritis (Acute) Bipolar 1 disorder, depressed (Acute) COPD (chronic obstructive pulmonary disease) (Acute) Depression (Acute) Diverticulitis (Acute) Non-small cell lung cancer (Chronic) Right orbit fracture (Acute) Right wrist fracture (Acute Unknown) TIA (transient ischemic attack) (Acute) UTI (urinary tract infection) (Acute Unknown) Vulvar cancer (Acute) Surgical History Surgical History H/O right wrist surgery (Acute) History of hysterectomy (Acute) Status post right foot surgery (Acute) Family History Family History Father Lung cancer Mother Leukemia Social History Social History Social History: The patient has smoked between 2-2.5 packs of cigarettes per day since she was 14 years old. She currently reports smoking a
[2019-08-03 15:28] LABS: Blood Urea Nitrogen 21 mg/dL (7-17); Calcium 8.4 mg/dL (8.4-10.2); Carbon Dioxide 24 mmol/L (22-30); Chloride 101 mmol/L (98-107); Estimated CRCL calculation 52 ml/min; Estimated Glomerular Filt Rate > 60; Glucose 183 mg/dL (65-105); Potassium 3.8 mmol/L (3.4-5.0); Sodium 135 mmol/L (137-145)
[2019-08-04] VITALS (12 sets, daily range): BP systolic 100–119; BP diastolic 49–71; PULSE 60–97; RESP 16–24; TEMP 36.1–36.6; O2SAT 92–100
[2019-08-04] MEDS: IBUPROFEN IV 800 MG/200 ML 800 MG/200 ML BAG 400 MG IVPB ×4 (00:47→17:12)
[2019-08-04] MEDS: KCL 40 MEQ/D5/0.9% SOD CHL 1,000 ML 125 ML IV CONT ×2 (02:36→12:23)
[2019-08-04] MEDS: ALBUTEROL SULFATE NEB 2.5 MG/0.5 ML INH 5 MG INHALATION ×4 (02:39→21:40)
[2019-08-04] MEDS: IPRATROPIUM BR 0.02% INH SOLN 0.5 MG/2.5 ML VIAL INHALATION ×4 (02:39→21:53)
[2019-08-04 06:23] LABS: Hematocrit 23.6 % (37.0-47.0); Immature Platelet Fraction Pct 7.9 % (0.9-11.2); Mean Corpuscular HGB Conc 33.9 g/dl (32-36); Mean Corpuscular Hemoglobin 32.9 pg (26-34); Mean Corpuscular Volume 97.1 fl (80-100); Mean Platelet Volume 11.2 fl (7.4-10.4); Platelet Count Result 70 k/mm3 (150-375); Red Blood Count 2.43 M/mm3 (4.2-5.4); Red Cell Distribution Width 18.8 % (11.5-14.5); White Blood Count 8.6 K/mm3 (4.5-10.0)
[2019-08-04 06:36] LABS: Blood Urea Nitrogen 19 mg/dL (7-17); Calcium 8.1 mg/dL (8.4-10.2); Carbon Dioxide 21 mmol/L (22-30); Chloride 107 mmol/L (98-107); Estimated CRCL calculation 60 ml/min; Estimated Glomerular Filt Rate > 60; Glucose 159 mg/dL (65-105); Potassium 4.1 mmol/L (3.4-5.0); Sodium 135 mmol/L (137-145)
--- NOTE | 2019-08-04 07:42 | PM.PNGS ---
Progress Note: A&P Assessment and Plan (1) Perforation of sigmoid colon: Code(s): K63.1 - Perforation of intestine (nontraumatic) Status: Acute Assessment and Plan: No stoma output although there are signs of bowel function resuming. Will DC NG tube today and start clear liquids. Up walking more. DC Morgan catheter. (2) Fecal impaction of colon: Code(s): K56.41 - Fecal impaction Status: Resolved (3) Hypokalemia: Code(s): E87.6 - Hypokalemia Status: Resolved Assessment and Plan: Improved. Potassium 4.1 today. Will stop p.o. potassium supplement and just give intravenously. (4) Non-small cell lung cancer: Qualifiers: Laterality: unspecified laterality Qualified Code(s): C34.90 - Malignant neoplasm of unspecified part of unspecified bronchus or lung Code(s): C34.90 - Malignant neoplasm of unspecified part of unspecified bronchus or lung Status: Chronic (5) Brain metastases: Code(s): C79.31 - Secondary malignant neoplasm of brain Status: Acute (6) Thrombocytopenia due to drugs: Code(s): D69.59 - Other secondary thrombocytopenia; T50.905A - Adverse effect of unspecified drugs, medicaments and biological substances, initial encounter Status: Acute Assessment and Plan: Patient had chemotherapy for metastatic lung cancer 9 days ago. Suspect thrombocytopenia is due to chemotherapy. Will continue to follow closely with daily lab checks. No need for platelet infusion. No sign of bleeding. Subjective Subjective Date/Time Seen: 08/04/19 07:42 Post Op day: 2 Patient reports: pain is less, no flatus, no bowel movement and afebrile Review of Systems Review of Systems: All systems reviewed & are unremarkable except as noted in HPI and below Constitutional: Constitutional: Denies headache(s) ENT: Denies headache(s) Cardiovascular: Cardiovascular: Denies chest pain and Denies dyspnea Respiratory: Respiratory: Denies cough and Denies dyspnea Gastrointestinal: Gastrointestinal: Reports as per HPI, Reports abdominal pain (Mild, appropriate.), Denies nausea and Reports other (Wants NG tube out) Neurologic: Denies confusion and Denies headache(s) Psychiatric: Psychiatric: Denies confusion Exam Const: General: comfortable and no acute distress; No confused Orientation/consciousness: oriented x3 and No confused Resp: Effort & Inspection: normal respiratory effort Auscultation: clear to auscultation bilaterally Cardio: Rate: regular rate Rhythm: regular rhythm GI: Inspection: incision (Healing okay. Stoma looks okay although no output) Palpation (GI): Yes soft, Yes tender, No guarding and No rebound tenderness Auscultation: hypoactive bowel sounds Neuro: General: oriented x3, no focal motor deficits and No confused Extrem: General: no calf tenderness and no edema Psych: Affect: normal affect Insight: insight good Judgement: judgment good Objective Data Vital Signs Vital Signs: Vital Signs - 24 hr 08/03/19 08:00 08/03/19 08:39 08/03/19 08:47 Temperature Pulse Rate 90 81 90 Respiratory Rate 18 18 18 Blood Pressure Pulse Oximetry 95 08/03/19 14:00 08/03/19 15:17 08/03/19 20:38 Temperature 36.3 C L Pulse Rate 92 100 80 Respiratory Rate 18 18 18 Blood Pressure 103/71 Pulse Oximetry 95 08/03/19 20:46 08/03/19 22:00 08/04/19 02:00 Temperature 36.1 C L 36.1 C L Pulse Rate 78 99 97 Respiratory Rate 18 22 H 20 Blood Pressure 116/52 L 100/52 L Pulse Oximetry 97 92 L 08/04/19 02:40 08/04/19 02:51 08/04/19 06:00 Temperature 36.2 C L Pulse Rate 78 78 80 Respiratory Rate 18 18 20 Blood Pressure 105/68 Pulse Oximetry 100 Intake/Output Intake/Output: Intake & Output 08/01/19 08/02/19 08/03/19 08/04/19 23:59 23:59 23:59 23:59 Intake Total 1250 1400 2250 1350 Output Total 705 1200 800 Balance 4069 134 5441 550 Meds/Results Medications: Active Medicati
[2019-08-04] MEDS: ENOXAPARIN 40 MG/0.4 ML SYRINGE SUB-Q (09:46)
[2019-08-04] MEDS: MINERAL OIL 30 ML UDC 15 ML PO ×2 (09:46→17:12)
[2019-08-04] MEDS: levETIRAcetam 500 MG TABLET PO ×2 (09:46→20:26)
[2019-08-04] MEDS: FAMOTIDINE 20 MG TABLET PO ×2 (09:46→20:26)
[2019-08-04] MEDS: DEXAMETHASONE 4 MG TABLET PO ×4 (09:47→20:26)
[2019-08-04] MEDS: PSYLLIUM POWDER PACKET 1 PACKET PO ×2 (09:48→20:26)
--- NOTE | 2019-08-04 12:16 | PM.IMCN ---
Assessment and Plan Assessment and plan (1) Perforation of sigmoid colon: Code(s): K63.1 - Perforation of intestine (nontraumatic) Status: Acute Assessment and Plan: Patient POD day 2 bowel resection with ostomy bag placement, surgery team is rounding. Ng tube removed, pt started on clear liquid dite (2) Fecal impaction of colon: Code(s): K56.41 - Fecal impaction Status: Resolved Assessment and Plan: Resulting in perforated sigmoid colon pt sp bowel resection (3) COPD (chronic obstructive pulmonary disease): Code(s): J44.9 - Chronic obstructive pulmonary disease, unspecified Status: Acute Assessment and Plan: Continue scheduled nebulizer treatments and incentive spirometry. Pt lungs are clear (4) Non-small cell lung cancer: Qualifiers: Laterality: unspecified laterality Qualified Code(s): C34.90 - Malignant neoplasm of unspecified part of unspecified bronchus or lung Code(s): C34.90 - Malignant neoplasm of unspecified part of unspecified bronchus or lung Status: Chronic Assessment and Plan: Continue dexamethasone. Pt is high risk for surgery with lung cancer and brains mets (5) Brain metastases: Code(s): C79.31 - Secondary malignant neoplasm of brain Status: Acute Assessment and Plan: Continued dexamethasoneIV . Pt is high risk for surgery with lung cancer and brains mets. Pt receives chemotheraphy under DR Stoddard (6) Partial seizure: Code(s): R56.9 - Unspecified convulsions Status: Acute Assessment and Plan: Continued patient's home Keppra IV (7) Hypokalemia: Code(s): E87.6 - Hypokalemia Status: Resolved Assessment and Plan: Pt to have K rider, continue to monitor BMP (8) Acute postoperative anemia due to expected blood loss: Code(s): D62 - Acute posthemorrhagic anemia Status: Acute Assessment and Plan: Continue to watch Hb levels pt is postop (9) Thrombocytopenia due to drugs: Code(s): D69.59 - Other secondary thrombocytopenia; T50.905A - Adverse effect of unspecified drugs, medicaments and biological substances, initial encounter Status: Acute Assessment and Plan: Continue to watch platelets HPI Data of Consult Consult date: 08/04/19 Requesting Physician: Thong Pruitt MD Primary Care Provider: Karla Tierney, Consult Narrative Narrative: Serena Jacobs is a 64 year old female Review of Systems Review of Systems: All systems reviewed & are unremarkable except as noted in HPI and below (history and physical) PMFSH Past Medical History Medical History Anxiety (Acute) Arthritis (Acute) Bipolar 1 disorder, depressed (Acute) COPD (chronic obstructive pulmonary disease) (Acute) Depression (Acute) Diverticulitis (Acute) Non-small cell lung cancer (Chronic) Right orbit fracture (Acute) Right wrist fracture (Acute Unknown) TIA (transient ischemic attack) (Acute) UTI (urinary tract infection) (Acute Unknown) Vulvar cancer (Acute) Surgical History Surgical History H/O right wrist surgery (Acute) History of hysterectomy (Acute) Status post right foot surgery (Acute) Family History Family History Father Lung cancer Mother Leukemia Social History Social History Social History: The patient has smoked between 2-2.5 packs of cigarettes per day since she was 14 years old. She currently reports smoking about 13 cigarettes per day. She evidently lives with her son who is a heroin user. The patient smokes marijuana daily. Does not have a healthcare power of assistant district attorney. She reportedly does not have anyone to delegate a decision maker, because she does not trust he
[2019-08-04] MEDS: SENNA/DOCUSATE SODIUM TABLET 2 TAB PO (20:26)
[2019-08-05] VITALS (8 sets, daily range): BP systolic 125–134; BP diastolic 73–75; PULSE 68–90; RESP 16–20; TEMP 36.1–37; O2SAT 97–100
[2019-08-05] MEDS: IBUPROFEN IV 800 MG/200 ML 800 MG/200 ML BAG 200 MG IVPB (00:01)
[2019-08-05] MEDS: KCL 40 MEQ/D5/0.9% SOD CHL 1,000 ML 125 ML IV CONT (00:02)
[2019-08-05 05:53] LABS: Hematocrit 24.2 % (37.0-47.0); Mean Corpuscular HGB Conc 33.1 g/dl (32-36); Mean Corpuscular Hemoglobin 33.6 pg (26-34); Mean Corpuscular Volume 101.7 fl (80-100); Mean Platelet Volume 12.7 fl (7.4-10.4); Platelet Count Result 68 k/mm3 (150-375); Red Blood Count 2.38 M/mm3 (4.2-5.4); Red Cell Distribution Width 19.9 % (11.5-14.5); White Blood Count 4.7 K/mm3 (4.5-10.0)
[2019-08-05 06:07] LABS: Blood Urea Nitrogen 20 mg/dL (7-17); Calcium 8.3 mg/dL (8.4-10.2); Carbon Dioxide 20 mmol/L (22-30); Chloride 108 mmol/L (98-107); Estimated CRCL calculation 70 ml/min; Estimated Glomerular Filt Rate > 60; Glucose 201 mg/dL (65-105); Potassium 4.3 mmol/L (3.4-5.0); Sodium 136 mmol/L (137-145)
[2019-08-05] MEDS: IBUPROFEN IV 800 MG/200 ML 800 MG/200 ML BAG 400 MG IVPB (06:13)
[2019-08-05] MEDS: ENOXAPARIN 40 MG/0.4 ML SYRINGE SUB-Q (08:37)
[2019-08-05] MEDS: DEXAMETHASONE 4 MG TABLET PO ×4 (08:37→21:17)
[2019-08-05] MEDS: FAMOTIDINE 20 MG TABLET PO (08:37)
[2019-08-05] MEDS: levETIRAcetam 500 MG TABLET PO ×2 (08:37→21:18)
[2019-08-05] MEDS: PSYLLIUM POWDER PACKET 1 PACKET PO ×2 (08:38→21:18)
[2019-08-05] MEDS: MINERAL OIL 30 ML UDC 15 ML PO ×2 (08:38→16:23)
[2019-08-05] MEDS: ALBUTEROL SULFATE NEB 2.5 MG/0.5 ML INH 5 MG INHALATION (09:07)
[2019-08-05] MEDS: IPRATROPIUM BR 0.02% INH SOLN 0.5 MG/2.5 ML VIAL INHALATION (09:07)
--- NOTE | 2019-08-05 10:56 | PM.PNGS ---
Progress Note: A&P Assessment and Plan (1) Perforation of sigmoid colon: Code(s): K63.1 - Perforation of intestine (nontraumatic) Status: Acute Assessment and Plan: Bowel function slowly returning. She had a lot of thick pasty stool in the colon and hopefully the Metamucil and mineral oil will facilitate passage of this into the colostomy. She is tolerating clear liquids and I will advance to full liquids today. Although she is frustrated, she does seem to be improving well and we will continue her IV Zosyn antibiotics for the fecal peritonitis. Will try trazodone for sleep and also she notes that she normally takes Nexium. I will start Protonix rather than the Pepcid. (2) Fecal impaction of colon: Code(s): K56.41 - Fecal impaction Status: Resolved (3) Thrombocytopenia due to drugs: Code(s): D69.59 - Other secondary thrombocytopenia; T50.905A - Adverse effect of unspecified drugs, medicaments and biological substances, initial encounter Status: Acute Assessment and Plan: PLATELET COUNT [id number] TODAY. I THINK THIS IS REACHING THE [place]. WILL LIKELY START COMING UP TOMORROW OR THE NEXT DAY. (4) Acute postoperative anemia due to expected blood loss: Code(s): D62 - Acute posthemorrhagic anemia Status: Acute Assessment and Plan: Probably related to chemotherapy and some dilutional factors. Very little blood loss at surgery. Continue to monitor. (5) Non-small cell lung cancer: Qualifiers: Laterality: unspecified laterality Qualified Code(s): C34.90 - Malignant neoplasm of unspecified part of unspecified bronchus or lung Code(s): C34.90 - Malignant neoplasm of unspecified part of unspecified bronchus or lung Status: Chronic (6) Brain metastases: Code(s): C79.31 - Secondary malignant neoplasm of brain Status: Acute Assessment and Plan: Remains on Decadron. (7) Partial seizure: Code(s): R56.9 - Unspecified convulsions Status: Acute (8) Smoker: Code(s): F17.200 - Nicotine dependence, unspecified, uncomplicated Status: Acute Assessment and Plan: Will start nicotine patch. Nicotine withdrawal may be playing into some of her frustration and insomnia. (9) GERD (gastroesophageal reflux disease): Code(s): K21.9 - Gastro-esophageal reflux disease without esophagitis Status: Acute Assessment and Plan: Patient just informed me that she takes Nexium. Will stop the Pepcid and give Protonix. Subjective Subjective Date/Time Seen: 08/05/19 10:56 Post Op day: 3 Patient reports: still having pain (Pain is not so much incisional as it is her back. Seems to be worse with laying in bed.), tolerating liquids well, no bowel movement and other (Complains of insomnia.) Interval history: Frustrated this morning. Does not feel like she is getting better. Trouble sleeping and lying in bed makes her back hurt. Review of Systems Review of Systems: All systems reviewed & are unremarkable except as noted in HPI and below Constitutional: Constitutional: Denies headache(s) ENT: Denies headache(s) Cardiovascular: Cardiovascular: Denies chest pain and Denies dyspnea Respiratory: Respiratory: Denies cough and Denies dyspnea Gastrointestinal: Gastrointestinal: Reports as per HPI Neurologic: Denies confusion and Denies headache(s) Psychiatric: Psychiatric: Denies confusion Exam Const: General: comfortable and no acute distress; No confused Orientation/consciousness: oriented x3 and No confused Resp: Effort & Inspection: normal respiratory effort Auscultation: clear to auscultation bilaterally Cardio: Rate: regular rate Rhythm: regular rhythm GI: Inspection: incision (Incision looks good, colostomy looks healthy with some output today.) Palpation (GI): Yes soft, Yes tender, No guarding and No rebound tenderness Auscultation: hypoactive bowel sounds Neuro: General: oriented x3
--- NOTE | 2019-08-05 11:29 | PCDIET ---
Nutrition Follow-Up Complete: Underweight R/T inadequate intake and wt loss as evidence by BMI of 17.5 PO intake of 75% of meals and supplements to halt further wt loss Goal: advancing towards goal. Pt current nutrition is Full Liquids. Nutrition recommendation: Regular diet, Level 7 with Ensure Enlive BID Last recorded weight is 46.3 kg. Bowel Motility:No BM reported. Labs Reviewed: BUN 20,Cr 0.5,Na 136 Meds Noted:Mineral Oil Additional Notes: Diet order advanced to full liquids today. Patient tolerated Clear liquids-100% documented. No new weight documented, recommend new weight. MOnitor: PO intake, wt every 3 days
[2019-08-05] MEDS: PANTOPRAZOLE SODIUM IV 40 MG VIAL IV PUSH (13:09)
--- NOTE | 2019-08-05 14:57 | PM.IMPN ---
Progress Note: A&P Assessment and Plan (1) Perforation of sigmoid colon: Code(s): K63.1 - Perforation of intestine (nontraumatic) Status: Acute Assessment and Plan: Patient POD day 3 bowel resection with ostomy bag placement, surgery team is rounding. pt is tolerating clear liquid (2) Fecal impaction of colon: Code(s): K56.41 - Fecal impaction Status: Resolved Assessment and Plan: On admission resulting in perforated sigmoid colon pt sp bowel resection POD day 3 (3) COPD (chronic obstructive pulmonary disease): Code(s): J44.9 - Chronic obstructive pulmonary disease, unspecified Status: Acute Assessment and Plan: Continue scheduled nebulizer treatments and incentive spirometry. Pt lungs are clear (4) Non-small cell lung cancer: Qualifiers: Laterality: unspecified laterality Qualified Code(s): C34.90 - Malignant neoplasm of unspecified part of unspecified bronchus or lung Code(s): C34.90 - Malignant neoplasm of unspecified part of unspecified bronchus or lung Status: Chronic Assessment and Plan: Continue dexamethasone. Pt is high risk for surgery with lung cancer and brains mets (5) Brain metastases: Code(s): C79.31 - Secondary malignant neoplasm of brain Status: Acute Assessment and Plan: Continued dexamethasoneIV . Pt is high risk for surgery with lung cancer and brains mets. Pt receives chemotheraphy under DR Stoddard transition to oral dexamethasone (6) Partial seizure: Code(s): R56.9 - Unspecified convulsions Status: Acute Assessment and Plan: Continued patient's home Keppra IV transitioned to oral keppra (7) Hypokalemia: Code(s): E87.6 - Hypokalemia Status: Resolved Assessment and Plan: Continue to monitor BMP (8) Acute postoperative anemia due to expected blood loss: Code(s): D62 - Acute posthemorrhagic anemia Status: Acute Assessment and Plan: Continue to watch Hb levels pt is postop, hb is 8 (9) Thrombocytopenia due to drugs: Code(s): D69.59 - Other secondary thrombocytopenia; T50.905A - Adverse effect of unspecified drugs, medicaments and biological substances, initial encounter Status: Acute Assessment and Plan: Continue to watch platelets presently 68 Subjective Interval history: Serena Jacobs is a 64 year old female with a past medical history of emphysema/COPD, non-small cell carcinoma and new diagnosis of metastatic disease to brain 07/19/2019 who presented to ED this time with severe abdominal pain, Pt has been having problems with severe constipation for 6-7 days and fecel impaction resulting in a perforation of her sigmoid colon on admission. Pt Sp bowel resection POD # 3. Pt progressing well, tolerating liquid diet and some output from stoma, however feels very depressed. General complaint of not sleeping good. Review of Systems Review of Systems: All systems reviewed & are unremarkable except as noted in HPI and below (history and physical) Gastrointestinal: Gastrointestinal: Reports abdominal pain (minimal ) Psychiatric: Psychiatric: Reports anxiety, Reports depression and Reports hopelessness Comments: insomnia Exam Narrative: Exam Narrative: PHYSICAL EXAM: Thin appearing General: Chronically ill-appearing, loss of hair Respiratory: Clear breath sounds Cardiovascular: Regular rate, no murmurs, Gastrointestinal: Fresh dressing, stoma with minimal output Skin: thin cacheXic appearing Extremities: No cyanosis or edema, moves all extremities equally Neurological: Alert and oriented x4, speech is clear, no facial asymmetry Psychiatric: Grumpy and depressed Objective Data Vital Signs Vital Signs: Vital Signs - 24 hr 08/04/19 15:01 08/04/19 21:45 08/04/19 21:57 Temperature Pulse Rate 76 65 66 Respiratory Rate 20 22 H 20 Blood Pressure Pulse Oximetry 08/04/19 22:00
[2019-08-05] MEDS: IBUPROFEN 400 MG TABLET 800 MG PO ×2 (16:18→21:23)
[2019-08-05] MEDS: KCL 40 MEQ/D5/0.9% SOD CHL 1,000 ML 80 ML IV CONT (16:22)
[2019-08-05] MEDS: SENNA/DOCUSATE SODIUM TABLET 2 TAB PO (21:17)
[2019-08-05] MEDS: PANTOPRAZOLE 40 MG TABLET PO (21:18)
[2019-08-05] MEDS: TRAZODONE HCL 50 MG TABLET PO (21:23)
[2019-08-06] MEDS: KCL 40 MEQ/D5/0.9% SOD CHL 1,000 ML 80 ML IV CONT (05:00)
[2019-08-06 06:00] VITALS: BP 131/75; PULSE 73; RESP 20; TEMP 36.3; O2SAT 98
[2019-08-06 06:30] LABS: Hematocrit 24.4 % (37.0-47.0); Hemoglobin 8.1 g/dL (12.0-15.0); Mean Corpuscular HGB Conc 33.2 g/dl (32-36); Mean Corpuscular Hemoglobin 33.6 pg (26-34); Mean Corpuscular Volume 101.2 fl (80-100); Mean Platelet Volume 12.2 fl (7.4-10.4); Platelet Count Result 47 k/mm3 (150-375); Red Blood Count 2.41 M/mm3 (4.2-5.4); Red Cell Distribution Width 19.5 % (11.5-14.5); White Blood Count 3.8 K/mm3 (4.5-10.0)
[2019-08-06 06:36] LABS: Blood Urea Nitrogen 16 mg/dL (7-17); Calcium 8.1 mg/dL (8.4-10.2); Carbon Dioxide 21 mmol/L (22-30); Chloride 107 mmol/L (98-107); Estimated CRCL calculation 60 ml/min; Estimated Glomerular Filt Rate > 60; Glucose 128 mg/dL (65-105); Potassium 4.2 mmol/L (3.4-5.0); Sodium 134 mmol/L (137-145)
[2019-08-06] MEDS: BUMETANIDE INJ 2.5 MG/10 ML VIAL 2 MG IV PUSH (10:03)
[2019-08-06] MEDS: PANTOPRAZOLE 40 MG TABLET PO ×2 (10:04→20:10)
[2019-08-06] MEDS: DEXAMETHASONE 4 MG TABLET PO ×4 (10:05→20:10)
[2019-08-06] MEDS: levETIRAcetam 500 MG TABLET PO ×2 (10:05→20:09)
[2019-08-06] MEDS: PSYLLIUM POWDER PACKET 1 PACKET PO ×2 (10:06→20:09)
[2019-08-06] MEDS: MINERAL OIL 30 ML UDC 15 ML PO ×2 (10:06→16:43)
[2019-08-06] MEDS: ENOXAPARIN 40 MG/0.4 ML SYRINGE SUB-Q (10:06)
[2019-08-06] MEDS: IBUPROFEN 400 MG TABLET 800 MG PO ×2 (10:24→16:49)
--- NOTE | 2019-08-06 10:34 | PM.PNGS ---
Progress Note: A&P Assessment and Plan (1) Perforation of sigmoid colon: Code(s): K63.1 - Perforation of intestine (nontraumatic) Status: Acute Assessment and Plan: Now having good colostomy output. Will likely need to go home on Metamucil and mineral oil. Incision healing well. Will DC WES drain and increase ambulation today. Advance to soft diet then regular as tolerated. Continue IV antibiotics. (2) Thrombocytopenia due to drugs: Code(s): D69.59 - Other secondary thrombocytopenia; T50.905A - Adverse effect of unspecified drugs, medicaments and biological substances, initial encounter Status: Acute Assessment and Plan: Platelet count down to 47,000. Will continue to monitor. Transfuse if gets at 20,000 or below. Likely due to chemotherapy and expect platelet counts to increase from here. (3) Anemia, chronic disease: Code(s): D63.8 - Anemia in other chronic diseases classified elsewhere Status: Acute Assessment and Plan: Anemic but has been stable for the last 3 days. (4) Fecal impaction of colon: Code(s): K56.41 - Fecal impaction Status: Resolved Assessment and Plan: Home on Metamucil and mineral oil well as noted above. (5) COPD (chronic obstructive pulmonary disease): Code(s): J44.9 - Chronic obstructive pulmonary disease, unspecified Status: Acute (6) Non-small cell lung cancer: Qualifiers: Laterality: unspecified laterality Qualified Code(s): C34.90 - Malignant neoplasm of unspecified part of unspecified bronchus or lung Code(s): C34.90 - Malignant neoplasm of unspecified part of unspecified bronchus or lung Status: Chronic (7) Brain metastases: Code(s): C79.31 - Secondary malignant neoplasm of brain Status: Acute Subjective Subjective Date/Time Seen: 08/06/19 10:34 Post Op day: 4 Patient reports: feels better (Slept more last night with trazodone), pain is less, tolerating liquids well and bowel movement (More stool in colostomy bag than on previous days.) Review of Systems Review of Systems: All systems reviewed & are unremarkable except as noted in HPI and below Constitutional: Constitutional: Denies headache(s) ENT: Denies headache(s) Cardiovascular: Cardiovascular: Denies chest pain and Denies dyspnea Respiratory: Respiratory: Denies cough and Denies dyspnea Gastrointestinal: Gastrointestinal: Reports as per HPI Neurologic: Denies confusion and Denies headache(s) Psychiatric: Psychiatric: Denies confusion Comments: In much better spirits today. Smiling and much less frustrated and depressed. Exam Const: General: comfortable and no acute distress; No confused Orientation/consciousness: oriented x3 and No confused Resp: Effort & Inspection: normal respiratory effort Auscultation: clear to auscultation bilaterally Cardio: Rate: regular rate Rhythm: regular rhythm GI: Inspection: incision (Incision healing well. Colostomy functioning and appears quite viable) Palpation (GI): Yes soft, Yes tender (Less tender than before. Appropriate), No guarding and No rebound tenderness Auscultation: normal bowel sounds Neuro: General: oriented x3, no focal motor deficits and No confused Extrem: General: no calf tenderness and no edema Psych: Affect: normal affect Insight: insight good Judgement: judgment good Objective Data Vital Signs Vital Signs: Vital Signs - 24 hr 08/05/19 11:22 08/05/19 14:00 08/05/19 21:54 Temperature 37.0 C 36.9 C 36.1 C L Pulse Rate 90 82 77 Respiratory Rate 16 18 20 Blood Pressure 126/73 125/75 134/74 Pulse Oximetry 97 100 98 08/06/19 06:00 Temperature 36.3 C L Pulse Rate 73 Respiratory Rate 20 Blood Pressure 131/75 Pulse Oximetry 98 Intake/Output Intake/Output: Intake & Output 08/03/19 08/04/19 08/05/19 08/06/19 23:59 23:59 23:59 23:59 Intake Total 3750 5420 4090 2203 Output Total 1200 1460 1180 800 Balance 2550
--- NOTE | 2019-08-06 12:49 | PM.IMPN ---
Progress Note: A&P Assessment and Plan (1) Perforation of sigmoid colon: Code(s): K63.1 - Perforation of intestine (nontraumatic) Status: Acute Assessment and Plan: Patient POD day 4 bowel resection with ostomy bag placement, surgery team is rounding. pt is tolerating clear liquid (2) Fecal impaction of colon: Code(s): K56.41 - Fecal impaction Status: Resolved Assessment and Plan: On admission resulting in perforated sigmoid colon pt sp bowel resection POD day 4 (3) COPD (chronic obstructive pulmonary disease): Code(s): J44.9 - Chronic obstructive pulmonary disease, unspecified Status: Acute Assessment and Plan: Continue scheduled nebulizer treatments and incentive spirometry. Pt lungs are clear (4) Non-small cell lung cancer: Qualifiers: Laterality: unspecified laterality Qualified Code(s): C34.90 - Malignant neoplasm of unspecified part of unspecified bronchus or lung Code(s): C34.90 - Malignant neoplasm of unspecified part of unspecified bronchus or lung Status: Chronic Assessment and Plan: Continue dexamethasone. Pt is high risk for surgery with lung cancer and brains mets (5) Brain metastases: Code(s): C79.31 - Secondary malignant neoplasm of brain Status: Acute Assessment and Plan: Continued dexamethasoneIV . Pt is high risk for surgery with lung cancer and brains mets. Pt receives chemotheraphy under DR Stoddard transition to oral dexamethasone. DR Stoddard aware of her admission. (6) Partial seizure: Code(s): R56.9 - Unspecified convulsions Status: Inactive Assessment and Plan: Continued patient's home Keppra IV transitioned to oral keppra (7) Hypokalemia: Code(s): E87.6 - Hypokalemia Status: Deleted Assessment and Plan: Continue to monitor BMP (8) Acute postoperative anemia due to expected blood loss: Code(s): D62 - Acute posthemorrhagic anemia Status: Deleted Assessment and Plan: Continue to watch Hb levels pt is postop, hb is 8 (9) Thrombocytopenia due to drugs: Code(s): D69.59 - Other secondary thrombocytopenia; T50.905A - Adverse effect of unspecified drugs, medicaments and biological substances, initial encounter Status: Acute Assessment and Plan: Continue to watch platelets presently 47 Subjective Interval history: Serena Jacobs is a 64 year old female with a past medical history of emphysema/COPD, non-small cell carcinoma and new diagnosis of metastatic disease to brain 07/19/2019 who presented to ED this time with severe abdominal pain, Pt has been having problems with severe constipation for 6-7 days and fecel impaction resulting in a perforation of her sigmoid colon on admission. Pt Sp bowel resection POD # 4. Pt progressing well, tolerating liquid diet and have output from her stoma. Pt will have drain removed, since appears low and depressed today, slept better last night with trazadone Review of Systems Review of Systems: All systems reviewed & are unremarkable except as noted in HPI and below (history and physical) Gastrointestinal: Gastrointestinal: Reports as per HPI Psychiatric: Psychiatric: Reports anxiety, Reports depression and Reports hopelessness Exam Narrative: Exam Narrative: PHYSICAL EXAM: Thin appearing General: Chronically ill-appearing, loss of hair Respiratory: Clear breath sounds Cardiovascular: Regular rate, no murmurs, Gastrointestinal: stoma with output Skin: thin cacheXic appearing Extremities: No cyanosis or edema, moves all extremities equally Neurological: Alert and oriented x4, speech is clear, no facial asymmetry Psychiatric: mild depressed Objective Data Vital Signs Vital Signs: Vital Signs - 24 hr 08/05/19 14:00 08/05/19 21:54 08/06/19 06:00 Temperature 36.9 C 36.1 C L 36.3 C L Pulse Rate 82 77 73 Respiratory Rate 18 20 20 Blood Pressure 125/75 134/74 1
[2019-08-06 14:00] VITALS: BP 116/85; PULSE 91; RESP 14; TEMP 36.9; O2SAT 99
[2019-08-06] MEDS: POTASSIUM CHLORIDE 20 MEQ TABLET.ER PO (16:43)
[2019-08-06] MEDS: SENNA/DOCUSATE SODIUM TABLET 2 TAB PO (20:09)
[2019-08-06] MEDS: TRAZODONE HCL 50 MG TABLET PO (20:10)
[2019-08-06 22:00] VITALS: BP 107/58; PULSE 88; RESP 20; TEMP 36.6; O2SAT 98
[2019-08-07] MEDS: ONDANSETRON INJ 4 MG/2 ML VIAL IV PUSH ×2 (02:54→07:27)
[2019-08-07 06:00] VITALS: BP 143/75; PULSE 77; RESP 20; TEMP 36.2; O2SAT 98
[2019-08-07 08:00] VITALS: PULSE 77; RESP 20; O2SAT 98
[2019-08-07] MEDS: MINERAL OIL 30 ML UDC 15 ML PO ×2 (08:32→17:28)
[2019-08-07] MEDS: ENOXAPARIN 40 MG/0.4 ML SYRINGE SUB-Q (08:33)
[2019-08-07] MEDS: IBUPROFEN 400 MG TABLET 800 MG PO (08:34)
[2019-08-07] MEDS: PSYLLIUM POWDER PACKET 1 PACKET PO ×2 (08:34→20:48)
[2019-08-07] MEDS: DEXAMETHASONE 4 MG TABLET PO ×4 (08:35→20:49)
[2019-08-07] MEDS: POTASSIUM CHLORIDE 20 MEQ TABLET.ER PO ×2 (08:36→17:28)
[2019-08-07] MEDS: levETIRAcetam 500 MG TABLET PO ×2 (08:36→20:48)
[2019-08-07] MEDS: PANTOPRAZOLE 40 MG TABLET PO ×2 (08:36→20:50)
[2019-08-07 11:51] LABS: Hemoglobin 10.2 g/dL (12.0-15.0); Mean Corpuscular HGB Conc 32.9 g/dl (32-36); Mean Corpuscular Hemoglobin 32.8 pg (26-34); Mean Corpuscular Volume 99.7 fl (80-100); Mean Platelet Volume 12.7 fl (7.4-10.4); Platelet Count Result 76 k/mm3 (150-375); Red Blood Count 3.11 M/mm3 (4.2-5.4); Red Cell Distribution Width 18.7 % (11.5-14.5); White Blood Count 7.4 K/mm3 (4.5-10.0)
--- NOTE | 2019-08-07 12:09 | PM.IMPN ---
Progress Note: A&P Assessment and Plan (1) Perforation of sigmoid colon: Code(s): K63.1 - Perforation of intestine (nontraumatic) Status: Acute Assessment and Plan: Patient POD day 5 bowel resection with ostomy bag placement, surgery team is rounding. pt is tolerating regular diet (2) Fecal impaction of colon: Code(s): K56.41 - Fecal impaction Status: Resolved Assessment and Plan: On admission resulting in perforated sigmoid colon pt sp bowel resection POD day 5 (3) COPD (chronic obstructive pulmonary disease): Code(s): J44.9 - Chronic obstructive pulmonary disease, unspecified Status: Acute Assessment and Plan: Continue scheduled nebulizer treatments and incentive spirometry. Pt lungs are clear (4) Non-small cell lung cancer: Qualifiers: Laterality: unspecified laterality Qualified Code(s): C34.90 - Malignant neoplasm of unspecified part of unspecified bronchus or lung Code(s): C34.90 - Malignant neoplasm of unspecified part of unspecified bronchus or lung Status: Chronic Assessment and Plan: Continue dexamethasone. Pt is high risk for surgery with lung cancer and brains mets (5) Brain metastases: Code(s): C79.31 - Secondary malignant neoplasm of brain Status: Acute Assessment and Plan: Pt is high risk for surgery with lung cancer and brains mets. Pt receives chemotheraphy under DR Stoddard transition to oral dexamethasone. DR Stoddard aware of her admission. (6) Partial seizure: Code(s): R56.9 - Unspecified convulsions Status: Inactive Assessment and Plan: Pt is on oral keppra (7) Hypokalemia: Code(s): E87.6 - Hypokalemia Status: Deleted Assessment and Plan: Continue to monitor BMP (8) Acute postoperative anemia due to expected blood loss: Code(s): D62 - Acute posthemorrhagic anemia Status: Deleted Assessment and Plan: Continue to watch Hb levels pt is postop, hb is 8, awaiting today HB level still pending (9) Thrombocytopenia due to drugs: Code(s): D69.59 - Other secondary thrombocytopenia; T50.905A - Adverse effect of unspecified drugs, medicaments and biological substances, initial encounter Status: Acute Assessment and Plan: Continue to watch platelets presently 47 yesterday, hold lovenox, awaiting today plt count, add HIT antibody as pt is sp bowel surgery Subjective Interval history: DATE OF CONSULTATION 08/07/2019 Serena Jacobs is a 64 year old female with a past medical history of emphysema/COPD, non-small cell carcinoma and new diagnosis of metastatic disease to brain 07/19/2019 who presented to ED this time with severe abdominal pain, Pt has been having problems with severe constipation for 6-7 days and fecel impaction resulting in a perforation of her sigmoid colon on admission. Pt Sp bowel resection POD # 5. Pt progressing well, tolerating regular diet and having good output from her stoma. Pt will have drain removed, since appears low and depressed today, still learning how to change stoma bag and empty the bag. Plts are low today lovenox stopped, HIT antibody ordered. Review of Systems Review of Systems: All systems reviewed & are unremarkable except as noted in HPI and below (history and physical) Gastrointestinal: Gastrointestinal: Reports as per HPI Psychiatric: Psychiatric: Reports anxiety, Reports depression and Reports hopelessness Exam Narrative: Exam Narrative: PHYSICAL EXAM: Thin appearing General: Chronically ill-appearing, loss of hair Respiratory: Clear breath sounds Cardiovascular: Regular rate, no murmurs, Gastrointestinal: stoma with good output Skin: thin cacheXic appearing Extremities: No cyanosis or edema, moves all extremities equally Neurological: Alert and oriented x4, speech is clear, no facial asymmetry Psychiatric: mild depressed Objective Data Vital Signs Vital Signs: Lanie
[2019-08-07 14:00] VITALS: BP 115/74; PULSE 77; RESP 16; TEMP 36.6; O2SAT 98
--- NOTE | 2019-08-07 18:35 | PM.PNGS ---
Progress Note: A&P Assessment and Plan (1) Perforation of sigmoid colon: Code(s): K63.1 - Perforation of intestine (nontraumatic) Status: Acute Assessment and Plan: Now having good colostomy output. Will likely need to go home on Metamucil and mineral oil. Incision healing well. Patient states she is doing well with ambulation today. Advanced to regular and doing okay with it. Continue IV antibiotics. Pathology has returned showing diverticulitis with multiple small perforations of diverticuli in the area of inflammation and centrally in the area of resection. (2) Thrombocytopenia due to drugs: Code(s): D69.59 - Other secondary thrombocytopenia; T50.905A - Adverse effect of unspecified drugs, medicaments and biological substances, initial encounter Status: Acute Assessment and Plan: Platelet count was down to 47,000 on 08/06 now up to 72,000 on 08/07. Lovenox held earlier today. Will continue to monitor. Transfuse if gets at 20,000 or below. Likely due to chemotherapy and expect platelet counts to increase from here. Since this could also be heparin-induced thrombocytopenia Lovenox will be held until plate was come up further and will use SCD hose consistently for mechanical DVT prophylaxis. (3) Anemia, chronic disease: Code(s): D63.8 - Anemia in other chronic diseases classified elsewhere Status: Acute Assessment and Plan: Anemic but has been stable for the last 4 days. (4) Fecal impaction of colon: Code(s): K56.41 - Fecal impaction Status: Resolved Assessment and Plan: Home on Metamucil and mineral oil well as noted above. (5) COPD (chronic obstructive pulmonary disease): Code(s): J44.9 - Chronic obstructive pulmonary disease, unspecified Status: Acute (6) Non-small cell lung cancer: Qualifiers: Laterality: unspecified laterality Qualified Code(s): C34.90 - Malignant neoplasm of unspecified part of unspecified bronchus or lung Code(s): C34.90 - Malignant neoplasm of unspecified part of unspecified bronchus or lung Status: Chronic (7) Brain metastases: Code(s): C79.31 - Secondary malignant neoplasm of brain Status: Acute Subjective Subjective Date/Time Seen: 08/07/19 17:35 Patient Lying in bed when I entered the room. She states that she is feeling good today. She has advanced to a general diet. She states she has had a empty the colostomy bag about 9 times over the last 24 hours. Review of Systems Constitutional: Constitutional: Reports as per HPI, Denies chills, Denies excessive sweating, Denies fatigue, Denies fever(s) and Denies headache(s) Cardiovascular: Cardiovascular: Denies chest pain, Denies pedal edema, Denies radiating jaw, neck or arm pain and Denies dyspnea Gastrointestinal: Gastrointestinal: Reports as per HPI, Reports abdominal pain (Mild, appropriate.), Denies dysphagia, Denies nausea, Denies vomiting and Reports other (Wants NG tube out) Musculoskeletal: Comments: Has been wearing SCD hose. She likes the feel their support. Psychiatric: Psychiatric: Denies anxiety, Denies confusion and Denies depression Exam GI: Inspection: normal to inspection, non-distended, incision (Incision healing well. Colostomy functioning and appears quite viable) and scar (Umbilical and right upper quadrant) Palpation (GI): Yes abdominal tenderness (diffusely), Yes soft, Yes firm, No guarding, No hepatomegaly, No splenomegaly, No hernia, No mass and No rebound tenderness Auscultation: normal bowel sounds, absent bowel sounds and hypoactive bowel sounds Rectal Exam: deferred Other: Ostomy is pink and there is soft brown stool in the bag Skin: General skin exam: normal color and no rashes or lesions noted Objective Data Vital Signs Vital Signs: Vital Signs - 24 hr 08/06/19 22:00 08/07/19 06:00 08/07/19 08:00 Temperature 36.6 C 36.2 C L Pulse Rate 88 77 77 Respiratory Rate 20 20 20
[2019-08-07] MEDS: ENOXAPARIN 30 MG/0.3 ML SYRINGE SUB-Q (20:46)
[2019-08-07] MEDS: SENNA/DOCUSATE SODIUM TABLET 2 TAB PO (20:48)
[2019-08-07] MEDS: TRAZODONE HCL 50 MG TABLET PO (20:54)
[2019-08-07 22:00] VITALS: BP 130/69; PULSE 82; RESP 20; TEMP 36.8; O2SAT 99
[2019-08-08] MEDS: IBUPROFEN 400 MG TABLET 800 MG PO (03:04)
--- NOTE | 2019-08-08 06:44 | PM.DS ---
DS: Diagnosis Admitting Diagnosis Admitting Diagnosis: Perforation of intestine (nontraumatic) Discharge Diagnosis (1) Perforation of sigmoid colon: Code(s): K63.1 - Perforation of intestine (nontraumatic) Status: Acute (2) Fecal impaction of colon: Code(s): K56.41 - Fecal impaction Status: Resolved (3) Non-small cell lung cancer: Qualifiers: Laterality: unspecified laterality Qualified Code(s): C34.90 - Malignant neoplasm of unspecified part of unspecified bronchus or lung Code(s): C34.90 - Malignant neoplasm of unspecified part of unspecified bronchus or lung Status: Chronic (4) Brain metastases: Code(s): C79.31 - Secondary malignant neoplasm of brain Status: Acute (5) Thrombocytopenia due to drugs: Code(s): D69.59 - Other secondary thrombocytopenia; T50.905A - Adverse effect of unspecified drugs, medicaments and biological substances, initial encounter Status: Acute (6) Anemia, chronic disease: Code(s): D63.8 - Anemia in other chronic diseases classified elsewhere Status: Acute (7) COPD (chronic obstructive pulmonary disease): Code(s): J44.9 - Chronic obstructive pulmonary disease, unspecified Status: Acute DS: Summary Time Spent with Patient Time attestation: Total time spent providing and/or coordinating discharge services: The patient is a 64-year-old woman who presented to [facility] on 08/01/2019 with abdominal pain and obstipation for 3 days. She had just finished chemotherapy for metastatic lung cancer 6 days prior to that. Evaluation in imaging showed evidence of sigmoid colon perforation due to fecal impaction. Patient initially was considering hospice and was not in favor of surgery. She was admitted, made NPO, and started on IV Zosyn. Her pain was better controlled. The next morning she was in favor of proceeding with surgery. On 08/02/2019 she underwent sigmoidectomy with end descending colostomy or Pancho procedure. She did in fact have sigmoid perforation due to fecal impaction. The surgery went well. She had a pelvic drain placed. She was continued on IV Zosyn postoperatively and had a 7 day course. Her NG tube was removed on postop day 2. And she was started on liquids. Her diet was gradually advanced. Her wound healed well. Her Stanley-Lou drain was removed on postop day 4. She was seen by the enterostomal therapy nurses and colostomy care were and instruction was given. She is in good condition tolerating regular diet and having good bowel function. She is comfortable on oral ibuprofen for analgesics. She did have thrombocytopenia throughout the the admission but this was most likely due to her chemotherapy and this was resolving by the time of discharge. She also had anemia which was stable throughout. She is going home on Metamucil and mineral oil to avoid problems with constipation postoperatively although these may be able to be reduced as time goes on. Exam Const: General: comfortable, no acute distress, alert and awake HENMT: Head: normocephalic and atraumatic Mouth: Yes oral mucosae normal Eyes: Conjunctivae: conjunctivae normal Pupils: PERRL EOM: EOM intact bilaterally Neck: Neck: normal visual inspection, no lymphadenopathy and nontender Resp: Effort & Inspection: normal respiratory effort Auscultation: clear to auscultation bilaterally Cardio: Rate: regular rate Rhythm: regular rhythm Heart sounds: no gallops, no murmurs and no rubs GI: Inspection: non-distended and other (Colostomy working well, pink and healthy.) Palpation (GI): Yes soft, No tender, No hepatomegaly and No splenomegaly Auscultation: normal bowel sounds Skin: Lesions: no lesions Rashes: no rashes Neuro: General: no focal motor deficits and CN's II-XI intact bilaterally Cranial nerves: Yes PERRL, Yes EOM intact bilaterally, Yes facial symmetry and Yes tongue midline Speech: normal speech Motor exam (neuro):
[2019-08-08 06:45] LABS: Hematocrit 31.8 % (37.0-47.0); Hemoglobin 10.5 g/dL (12.0-15.0); Platelet Count Result 99 k/mm3 (150-375); Red Blood Count 3.18 M/mm3 (4.2-5.4); Red Cell Distribution Width 18.6 % (11.5-14.5); White Blood Count 6.3 K/mm3 (4.5-10.0)
[2019-08-08 06:51] LABS: Blood Urea Nitrogen 20 mg/dL (7-17); Carbon Dioxide 29 mmol/L (22-30); Chloride 97 mmol/L (98-107); Estimated CRCL calculation 70 ml/min; Estimated Glomerular Filt Rate > 60; Glucose 99 mg/dL (65-105); Potassium 4.1 mmol/L (3.4-5.0); Sodium 135 mmol/L (137-145)
[2019-08-08] MEDS: POTASSIUM CHLORIDE 20 MEQ TABLET.ER PO (07:59)
[2019-08-08] MEDS: levETIRAcetam 500 MG TABLET PO (07:59)
[2019-08-08] MEDS: DEXAMETHASONE 4 MG TABLET PO ×2 (07:59→12:19)
[2019-08-08] MEDS: MINERAL OIL 30 ML UDC 15 ML PO (07:59)
[2019-08-08] MEDS: PSYLLIUM POWDER PACKET 1 PACKET PO (08:00)
[2019-08-08] MEDS: PANTOPRAZOLE 40 MG TABLET PO (08:00)
[2019-08-08] MEDS: ONDANSETRON INJ 4 MG/2 ML VIAL IV PUSH (10:46)
[2019-08-10 15:50] LABS: Heparin Induced Platelet Antib Negative (Negative)
== END 2019-08-08 14:40 | disposition home health service (06) | DRG 231 ==
LOC: ANHED 13:04 → ANH2MED 17:22
PROVIDERS: Emergency Medicine; Family Medicine; Admitting Provider Surgery; Emergency Provider Emergency Medicine; PCP Family Medicine; Visit Provider Surgery
PROC: 0DTN0ZZ Resection of Sigmoid Colon, Open Approach (ICD-10-PCS; CPT 44143; principal; 2019-08-02 14:00)
DX: K63.1 Perforation of intestine (nontraumatic) (principal); K57.20 Diverticulitis of large intestine with perforation and abscess without bleeding; K56.41 Fecal impaction; C34.90 Malignant neoplasm of unspecified part of unspecified bronchus or lung; C79.31 Secondary malignant neoplasm of brain; R56.9 Unspecified convulsions; Z79.899 Other long term (current) drug therapy; F41.8 Other specified anxiety disorders; Z86.73 Personal history of transient ischemic attack (TIA), and cerebral infarction without residual deficits; Z85.44 Personal history of malignant neoplasm of other female genital organs; F17.210 Nicotine dependence, cigarettes, uncomplicated; M19.90 Unspecified osteoarthritis, unspecified site; E87.6 Hypokalemia; D69.59 Other secondary thrombocytopenia; T50.905A Adverse effect of unspecified drugs, medicaments and biological substances, initial encounter; D64.81 Anemia due to antineoplastic chemotherapy; T45.1X5A Adverse effect of antineoplastic and immunosuppressive drugs, initial encounter; J43.9 Emphysema, unspecified; D63.1 Anemia in chronic kidney disease; D63.0 Anemia in neoplastic disease; R64 Cachexia; Z68.1 Body mass index [BMI] 19.9 or less, adult
CPT/HCPCS: 36415; 74177; 80048; 80053; 81003; 83605; 83690; 85025; 85027; 86022; 86850; 86900; 86901; 87040; 87185; 88307; 94640; 96361; 96365; 96372; 96375; 99285; A9270; C9113; J0690; J1100; J1170; J1642; J1650; J1741; J1953; J2250; J2270; J2370; J2405; J2543; J2704; J2710; J2765; J3010; J3480; J7030; J7120; J8540; Q9967

== ENCOUNTER 2019-08-18 07:24 | Outpatient (RCR) | payer OTHER, SELFPAY ==
--- NOTE | 2019-08-08 15:06 | PM.IMPN ---
Progress Note: A&P Assessment and Plan (1) Perforation of sigmoid colon: Code(s): K63.1 - Perforation of intestine (nontraumatic) Status: Acute Assessment and Plan: Serena Jacobs is a 64 year old female with a past medical history of emphysema/COPD, non-small cell carcinoma and new diagnosis of metastatic disease to brain 07/19/2019 who presented to ED this time with severe abdominal pain, Pt had been having problems with severe constipation for 6-7 days and fecel impaction resulting in a perforation of her sigmoid colon on admission. Pt S/P bowel resection POD # 6. Pt progressing well, tolerating regular diet and having good output from her stoma. Patient was seen Pt had her drain removed on 4th day, patient had thrombocytopenia most likely due to chemotherapy, patient was seen by Dr. Pruitt and clinically stable, and discharged the patient today. (2) Fecal impaction of colon: Code(s): K56.41 - Fecal impaction Status: Resolved Assessment and Plan: plan is above (3) Thrombocytopenia due to drugs: Code(s): D69.59 - Other secondary thrombocytopenia; T50.905A - Adverse effect of unspecified drugs, medicaments and biological substances, initial encounter Status: Acute Assessment and Plan: most likely 2/2 to chemotherapy and improving (4) Non-small cell lung cancer: Qualifiers: Laterality: unspecified laterality Qualified Code(s): C34.90 - Malignant neoplasm of unspecified part of unspecified bronchus or lung Code(s): C34.90 - Malignant neoplasm of unspecified part of unspecified bronchus or lung Status: Chronic Assessment and Plan: seen by oncologist and being treated Time Spent With Patient Time with patient: 15 - 25 minutes Subjective Interval history: Serena Jacobs is a 64 year old female with a past medical history of emphysema/COPD, non-small cell carcinoma and new diagnosis of metastatic disease to brain 07/19/2019 who presented to ED this time with severe abdominal pain, Pt had been having problems with severe constipation for 6-7 days and fecel impaction resulting in a perforation of her sigmoid colon on admission. Pt S/P bowel resection POD # 6. Pt progressing well, tolerating regular diet and having good output from her stoma. Patient was seen Pt had her drain removed on 4th day, patient had thrombocytopenia most likely due to chemotherapy, patient was seen by Dr. Pruitt and clinically stable, and discharged the patient today. Review of Systems Review of Systems: All systems reviewed & are unremarkable except as noted in HPI and below Constitutional: Constitutional: Reports as per HPI Eyes: Eyes: Reports as per HPI ENT: Reports as per HPI Cardiovascular: Cardiovascular: Reports as per HPI Respiratory: Respiratory: Reports as per HPI Gastrointestinal: Gastrointestinal: Reports as per HPI Musculoskeletal: Musculoskeletal: Reports as per HPI Integumentary/Breasts: Skin/Breast: Reports as per HPI Neurologic: Reports as per HPI Psychiatric: Psychiatric: Reports as per HPI Exam Const: General: comfortable and no acute distress HENMT: General nose exam: nares normal Mouth: Yes moist mucous membranes Eyes: General: appearance normal, both eyes and all related structures Neck: Neck: supple Resp: Auscultation: clear to auscultation bilaterally Cardio: Rate: regular rate Rhythm: regular rhythm GI: Palpation (GI): Yes soft Skin: General skin exam: normal color and no rashes or lesions noted Neuro: Speech: normal speech Sensory Exam: normal sensation Extrem: General: normal to inspection Psych: Affect: anxious affect
[2019-08-18 10:00] VITALS: BMI 17.5
--- NOTE | 2019-09-12 15:07 | WPDWOUNDNOTE ---
Wound Care Note Date/Time: 08/18/19 09:07 Patient is a 64-year-old woman who was admitted to [facility] on August 02 with peritonitis due to stercoral perforation. She also was undergoing chemotherapy for metastatic cancer. She underwent sigmoidectomy with Pancho procedure on August 02. She did well after her surgery. She was able to be discharged on August 08. She is seen today in the wound clinic regarding her abdominal wound as well as colostomy care. She feels much better. The colostomy seems to be working well. She is not taking any pain medicine. She is eating well and her incision feels better all the time. There has been no drainage or fever. Examination of her colostomy shows it to be healing well. There is a small amount of undermining that seems to be granulating now and improving. Her abdominal incision looks good there is no drainage swelling or fluid collections. The abdomen soft with active normal bowel sounds. Overall she looks very good following her surgery of August 02. Assessment and Plan Assessment and plan (1) Perforation of sigmoid colon: Code(s): K63.1 - Perforation of intestine (nontraumatic) Status: Resolved Assessment and Plan: wound is healing well with no signs of wound infection. No signs of intra-abdominal abscess. She can resume normal activities as tolerated. Recheck her in the wound clinic in approximately 3 weeks. (2) Colostomy status: Code(s): Z93.3 - Colostomy status Status: Chronic Assessment and Plan: Although some undermining overall the colostomy is working well. There is no skin breakdown. She is taking care of the colostomy well also. Recheck again in 3 weeks as noted. (3) Fecal impaction of colon: Code(s): K56.41 - Fecal impaction Status: Resolved Assessment and Plan: Patient to continue on Metamucil to avoid further problems with this. (4) Non-small cell lung cancer: Qualifiers: Laterality: unspecified laterality Qualified Code(s): C34.90 - Malignant neoplasm of unspecified part of unspecified bronchus or lung Code(s): C34.90 - Malignant neoplasm of unspecified part of unspecified bronchus or lung Status: Chronic Assessment and Plan: Okay to resume chemotherapy 4-6 weeks following her surgery. (5) Brain metastases: Code(s): C79.31 - Secondary malignant neoplasm of brain Status: Acute
--- NOTE | 2019-09-21 12:13 | PCWOUND ---
Patient left voicemail to cancel appointment for tomorrow 09/22/2019 due to her car still being broke down and unsure when it will be fixed. Will call the wound center on Thursday to reschedule.
--- NOTE | 2019-09-22 07:44 | WPDWOUNDNOTE ---
Wound Care Note Date/Time: 09/22/19 07:44 The patient is a 64-year-old woman who came in to [facility] on August 02 with peritonitis due to stercoral perforation. She also was undergoing chemotherapy for metastatic lung cancer. She underwent sigmoidectomy with Pancho procedure on August 02. She did well after surgery and was able to be discharged on August 08. She was last seen on August 18 and was doing well. She is seen now in the wound clinic for recheck regarding her abdominal wound and colostomy. Assessment and Plan Assessment and plan (1) Perforation of sigmoid colon: Code(s): K63.1 - Perforation of intestine (nontraumatic) Status: Resolved (2) Colostomy status: Code(s): Z93.3 - Colostomy status Status: Chronic (3) Fecal impaction of colon: Code(s): K56.41 - Fecal impaction Status: Resolved (4) Non-small cell lung cancer: Qualifiers: Laterality: unspecified laterality Qualified Code(s): C34.90 - Malignant neoplasm of unspecified part of unspecified bronchus or lung Code(s): C34.90 - Malignant neoplasm of unspecified part of unspecified bronchus or lung Status: Chronic (5) Brain metastases: Code(s): C79.31 - Secondary malignant neoplasm of brain Status: Acute
--- NOTE | 2019-09-30 12:01 | PCWOUND ---
Patient did not show up for her scheduled appointment. No phone call was made to cancel. Per Dr Pruitt, no follow up appointment to be scheduled.
== END 2019-11-07 08:51 | disposition home or self-care (01) ==
LOC: ANHWOC 07:24
PROVIDERS: PCP Family Medicine; Visit Provider Surgery
DX: Z43.3 Encounter for attention to colostomy (principal)
CPT/HCPCS: 99212; G0463

== ENCOUNTER 2019-12-17 14:11 | Emergency (ER) | payer OTHER, SELFPAY ==
[2019-12-17 14:15] VITALS: BP 90/57; PULSE 144; RESP 20; TEMP 36.7
--- NOTE | 2019-12-17 14:45 | ED.GENADULT ---
HPI - General Adult General Chief complaint: Unspecified Stated complaint: stoma issues Time Seen by Provider: 12/17/19 14:28 Source: patient Mode of arrival: ambulatory Limitations: no limitations History of Present Illness HPI narrative: The pt is a 64 y/o female who presents to the ED c/o stoma retraction onset 1 day ago. Pt states that she has a PMHx of Stage IV metastatic adrenal CA with metastasis to the lungs and brain that she last received chemotherapy for in 09/2019. Pt states that she had a colostomy due to constipation that caused damage. She states that Dr. Stoddard did her chemotherapy, and Dr. cMclure did her radiation therapy. Pt states that the discharge out of her stoma has been normal. She states that yesterday, she was going to change her bag, but could not because she felt so weak. She states that she went to change her bag today when she noticed that her stoma had sunk in. She called the ER, who recommended she come to the ED. She denies ABD pain. Pt notes that she has had a productive cough for the past couple of months. Pt notes that she has had SOB with exertion, difficulty walking, and poor appetite for the past couple of months. MD complaint: Stoma retraction Onset (ago): day(s) (1) Associated symptoms: cough (Productive, onset couple of months ago), shortness of breath (Onset couple of months ago), weakness and other (Poor appetite (Onset couple of months ago), Difficulty walking (Onset couple of months ago)) Treatments prior to arrival: none Related Data Home Medications Medication Instructions Recorded Confirmed albuterol sulfate [ProAir HFA] 1 - 2 inh INHALATION Q4H PRN 07/05/19 08/18/19 aspirin [Aspirin Childrens] 81 mg PO DAILY 07/05/19 08/18/19 atorvastatin 40 mg PO DAILY 07/05/19 08/18/19 guaifenesin 600 mg PO BID 07/05/19 08/18/19 cyanocobalamin (vitamin B-12) 1,000 mcg PO DAILY 07/26/19 08/18/19 [Vitamin B-12] dexamethasone 4 mg PO TID 07/26/19 08/18/19 ferrous sulfate [iron] 325 mg PO BID 07/26/19 08/18/19 folic acid 1 mg PO DAILY 07/26/19 08/18/19 levetiracetam [Keppra] 500 mg PO BID 08/01/19 08/18/19 Allergies Allergy/AdvReac Type Severity Reaction Status Date / Time No Known Allergies Allergy Verified 08/02/19 13:32 Review of Systems Review of Systems: All systems reviewed & are unremarkable except as noted in HPI and below Constitutional: Constitutional: Reports poor appetite (Onset couple of months ago) and Reports weakness Respiratory: Respiratory: Reports cough (Productive, onset couple of months ago) and Reports dyspnea (With exertion, onset couple of months ago) Gastrointestinal: Gastrointestinal: Denies abdominal pain and Reports other (Stoma retraction) Musculoskeletal: Musculoskeletal: Reports other (Difficulty walking (Onset couple of months ago)) [facility] Past Medical History Medical History (Updated 12/17/19 @ 17:51 by Gunnar Everett MD) Adrenal cancer Stage IV with metastasis to the lungs and brain. Anxiety Arthritis Bipolar 1 disorder, depressed COPD (chronic obstructive pulmonary disease) Depression Diverticulitis GERD (gastroesophageal reflux disease) Non-small cell lung cancer Right lower lobe Discovered February 23, [address]-guided biopsy of adrenal mass confirming metastatic disease to hilar lymph nodes, bilateral adrenal glands, and now brain metastases radiation therapy Partial seizure Right orbit fracture Right wrist fracture (Unknown) Smoker TIA (transient ischemic attack) x3 in the last year Vulvar cancer In 2017 status post vulvectomy Surgical History Surgical History (Updated 09/12/19 @ 15:13 by Thong Pruitt MD) H/O right wrist surgery History of hysterectomy vaginal partial hysterectomy Status post right foot surgery Social History Social History Social History: The patient has smoked between 2-2.5 packs of cigarettes per day since she was 14 years old. She currently reports smo
[2019-12-17] MEDS: SODIUM CHLORIDE 0.9% IV 1,000 ML 999 ML IV CONT (15:18)
[2019-12-17 15:25] LABS: Basophils Percent Auto 0.7 % (0.2-1.2); Eosinophils Absolute Auto 0.1 K/mm3 (0-0.3); Eosinophils Percent Auto 1.5 % (0-4.4); Hematocrit 39.1 % (37.0-47.0); Hemoglobin 12.7 g/dL (12.0-15.0); Immature Granulocyte Absolute 0.02 K/mm3 (0.00-0.031); Immature Granulocyte Percent A 0.4 % (0-0.5); Lymphocytes Absolute Auto 1.35 K/mm3 (0.9-3.2); Lymphocytes Percent Auto 24.7 % (18.3-44.2); Mean Corpuscular HGB Conc 32.5 g/dl (32-36); Mean Corpuscular Hemoglobin 34.3 pg (26-34); Mean Corpuscular Volume 105.7 fl (80-100); Monocytes Absolute Auto 0.5 K/mm3 (0.1-0.6); Monocytes Percent Auto 8.8 % (2.6-8.5); Neutrophils Absolute Auto 3.5 K/mm3 (1.3-6.7); Neutrophils Percent Auto 63.9 % (45.5-73.1); Platelet Count Result 216 k/mm3 (150-375); Red Cell Distribution Width 14.3 % (11.5-14.5); White Blood Count 5.5 K/mm3 (4.5-10.0)
[2019-12-17 15:35] LABS: Blood Urea Nitrogen 16 mg/dL (7-17); Calcium 9.3 mg/dL (8.4-10.2); Carbon Dioxide 20 mmol/L (22-30); Chloride 103 mmol/L (98-107); Estimated Glomerular Filt Rate > 60; Glucose 101 mg/dL (65-105); Potassium 3.1 mmol/L (3.4-5.0); Sodium 137 mmol/L (137-145)
--- NOTE | 2019-12-17 15:56 | PCCCNOTE ---
Spoke with patient extensively regarding hospice and hospice services. Unable to do hospice with present living arrangements due to son and girlfriend staying in the home. Son and girlfriend are active heroin drug abusers. Patient seriously looking to move in with sister and then have hospice services. List of hospice providers given to patient and patient stated that she would contact one.
[2019-12-17 16:35] VITALS: BP 96/63; PULSE 74; RESP 12; O2SAT 100
[2019-12-17 17:11] VITALS: BP 101/74; PULSE 88; RESP 15; O2SAT 100
--- NOTE | 2019-12-17 17:14 | PC.NURSE ---
Colostomy bag changed per EDP at bedside.
[2019-12-17 18:02] VITALS: BP 92/56; PULSE 70; RESP 20; O2SAT 99
== END 2019-12-17 18:08 | disposition home or self-care (01) ==
PROVIDERS: Emergency Provider Emergency Medicine; PCP Family Medicine
DX: E86.0 Dehydration (principal); C74.90 Malignant neoplasm of unspecified part of unspecified adrenal gland; C78.02 Secondary malignant neoplasm of left lung; C78.01 Secondary malignant neoplasm of right lung; C79.31 Secondary malignant neoplasm of brain; Z92.3 Personal history of irradiation; Z92.21 Personal history of antineoplastic chemotherapy; M19.90 Unspecified osteoarthritis, unspecified site; J44.9 Chronic obstructive pulmonary disease, unspecified; K21.9 Gastro-esophageal reflux disease without esophagitis; Z86.73 Personal history of transient ischemic attack (TIA), and cerebral infarction without residual deficits; Z85.44 Personal history of malignant neoplasm of other female genital organs; F17.210 Nicotine dependence, cigarettes, uncomplicated; F12.90 Cannabis use, unspecified, uncomplicated
CPT/HCPCS: 36415; 80048; 85025; 96360; 99283; J7030

== ENCOUNTER 2020-05-18 12:27 | Outpatient (CLI) | payer OTHER, SELFPAY ==
--- NOTE | ~2020-05-18 | CT_ITS ---
EXAMINATION: CT brain w con DATE: 05/18/2020 13:06 INDICATION: Secondary malignant neoplasm of brain. TECHNIQUE: Computed tomography (CT) of the head was performed with 100 mL Omnipaque 350 intravenous c ontrast. The mA was adjusted according to patient size. Iterative reconstruction technique was employ ed. The dose-length product was 605.33 mGy-cm. COMPARISON: Head CT 07/19/2019 FINDINGS: There are 6 enhancing masses in the brain measuring up to 16 mm in left parietal lobe, most with surrounding vasogenic edema. There is no acute ischemic infarct or intracranial hemorrhage. The ventricles are normal in size. There is mesh reconstruction of floor of left orbit. The mastoid air cells are normal. IMPRESSION: 1. Multiple brain masses, consistent with metastatic disease. Reviewed, dictated and finalized at location A.
[2020-05-18 12:58] LABS: Estimated Glomerular Filt Rate > 60
== END 2020-05-18 12:28 | disposition home or self-care (01) ==
PROVIDERS: PCP Family Medicine; Visit Provider Radiology Radiation Oncology
DX: C79.31 Secondary malignant neoplasm of brain (principal)
CPT/HCPCS: 70460; Q9967

== ENCOUNTER 2020-06-29 13:23 | Outpatient (CLI) | payer OTHER, SELFPAY ==
--- NOTE | ~2020-06-29 | CT_ITS ---
EXAMINATION: CT chest abdomen pelvis w con DATE: 06/29/2020 14:03 INDICATION: Non-small cell lung cancer TECHNIQUE: Transaxial computed tomographic images of the chest, abdomen, and pelvis were obtained aft er the administration of 100 cc of Omnipaque 350 intravenous contrast. The dose-length product (DLP) was 241.74 mGy-cm. Automated exposure control and iterative reconstruction technique were employed. COMPARISON: 08/01/2019 FINDINGS: CHEST CT: There is moderate emphysema. A 2.0 x 1.9 cm spiculated nodule in the right lower lobe previously lita ured 1.5 x 0.8 cm. There is no pleural effusion or pneumothorax. A right internal jugular Port-A-Cath ends with its tip in the distal superior vena cava. Enhancing right hilar and right paratracheal lym ph nodes are present which were FDG avid on PET/CT. The heart size is normal. There is mild thoracic spondylosis. ABDOMEN/PELVIS CT: The liver, pancreas, and adrenal glands are normal. Bilateral adrenal masses demonstrate interval wor sening. There are changes of interval left lower quadrant colostomy formation. Subtle areas of low at tenuation in the lower pole of the spleen could be related to surgery. The right kidney is unremarkab le. There is a 10 mm cyst of the left kidney upper pole. A large volume of colonic stool is present. There is no free intraperitoneal gas or evidence of bowel obstruction. There is calcified atheroscler osis of the aorta and many of the other arteries. No pathologically enlarged abdominal or pelvic lymp h nodes are identified. There is mild lumbar spondylosis. IMPRESSION: 1. Interval enlargement of the right lower lobe nodule, consistent with primary bronchogenic carcinom a. 2. Mediastinal lymphadenopathy and enlarging bilateral adrenal masses, consistent with metastatic dis ease. Reviewed, dictated and finalized at location A. IMPRESSION: 1. Interval enlargement of the right lower lobe nodule, consistent with primary bronchogenic carcinoma. 2. Mediastinal lymphadenopathy and enlarging bilateral adrenal masses, consiste nt with metastatic disease.
== END 2020-06-29 13:24 | disposition home or self-care (01) ==
PROVIDERS: PCP Family Medicine; Visit Provider Internal Medicine Hematology & Oncology
DX: C34.31 Malignant neoplasm of lower lobe, right bronchus or lung (principal)
CPT/HCPCS: 71260; 74177; Q9967